=== PATIENT | male | born 1970 | race Caucasian/White ===

== ENCOUNTER 2023-01-06 15:21 | Emergency (ER) | payer OTHER, SELFPAY ==
[2023-01-06] VITALS (17 sets, daily range): BP systolic 144–170; BP diastolic 62–88; PULSE 61–79; RESP 16; TEMP 37.1; O2SAT 94–97; BMI 30.6
--- NOTE | 2023-01-06 15:55 | CRLHL7_ITS ---
For Patients: As a result of the Century Cures Act, medical imaging exams and procedure reports are released immediately into your electronic medical record. You may view this report before your referring provider. If you have questions, please contact your health care provider. INDICATION: Chest pain. TECHNIQUE: CT chest PE was acquired with 95 cc Isovue 370 IV contrast. COMPARISON: None. FINDINGS: Heart and vasculature: Contrast opacification of the pulmonary arterial tree is adequate. No sign of pulmonary embolism. Heart size is normal. Thoracic aorta and pulmonary artery are normal in caliber. Lungs and pleura: No suspicious nodules or infiltrates. Scattered atelectasis. No pleural effusions, pleural thickening, or pneumothorax. Lymph nodes/mediastinum: No mediastinal, hilar, or axillary adenopathy. Chest wall: No masses. Upper abdomen: No acute or significant findings. Bones: Unremarkable for age. IMPRESSION: No pulmonary embolism as questioned. No focal consolidation. Please note that all CT scans at this facility use dose modulation, iterative reconstruction, and/or weight-based dosing when appropriate to reduce radiation dose to as low as reasonably achievable. Dictated by Kade Reynoso MD @ 01/06/2023 5:24:59 PM (Electronically Signed)
[2023-01-06] MEDS: PANTOPRAZOLE SODIUM 40 MG INJ IVP (16:14)
[2023-01-06] MEDS: 0.9 % SODIUM CHLORIDE 1000 ml 1,000 ML IV (16:14)
--- NOTE | 2023-01-06 16:23 | ED.CHESTPAIN ---
HPI - Chest Pain General Date Seen: 01/06/23 Chief Complaint: Chest Pain Stated Complaint: Chest pain Time Seen by Provider: 01/06/23 15:30 Source: patient Mode of arrival: ambulatory Limitations: no limitations History of Present Illness HPI narrative: Patient is a very nice 52-year-old gentleman who I knew socially, presents here with chest pain for the last 4 days, he describes in his anterior chest, with no radiation, he came on after strenuous workout that he did. He noted the next day it was worse. It does not get worse with any twisting turning or doing any exercises, walking does not cause of worsening of this also. He denies any shortness of breath with this, any presyncopal symptoms, just this discomfort. Discomfort itself to come to [facility] 2 days ago, there are workup was negative with chest x-ray serial troponins D-dimer was all normal. He has no past history of any significant coronary artery disease, normal cholesterol is, nonsmoker his life, no history of hypertension. He has no other risk factors and no family history of coronary artery disease. I noted the notes from [facility] that he had a stress echo done in 2019 that was normal. And angiogram done in 2014 that was normal. He denies any leg swelling, nausea vomiting abdominal pain, he took some aspirin for a came in as he called a friend who is a physician who recommended that he take some aspirin come in. He tentatively has stress test for this week through his regular doctor Dr. Bronson Ponce in prior leg. complaint: chest pain Timing of current episode: constant Prior episodes: Yes Onset: during rest Pain location: substernal Pain radiation: none Quality: dull Relieving factors: nothing Treatment prior to arrival: none Risk Factors Coronary artery disease risk factors: none Thoracic aortic dissection risk factors: none Related Data Home Medications Medication Instructions Recorded Confirmed No Known Home Medications 01/06/23 01/06/23 Allergies Allergy/AdvReac Type Severity Reaction Status Date / Time No Known Drug Allergies Allergy Verified 01/06/23 16:34 Review of Systems Status of ROS Reports: 10 or more systems reviewed and unremarkable except as noted in History and below PFSH PFSH Social History Smoking Status: Never smoker Do you use any of these nicotine containing products: Other How often do you have a drink containing alcohol: 2-4 times a month How many standard drinks containing alcohol do you have on a typical day: 3 or 4 How often do you have six or more drinks on one occasion: Never AUDIT-C Alcohol total score: 3 Non-prescribed substance use: denies use Exam Narrative Exam Narrative: Patient is seen in room 6 he is in no apparent distress, sitting are normally, his pupils are equal round reactive to light there is no scleral icterus redness TMs are normal oropharynx is normal, there is no adenopathy anterior posterior chains, cranial nerves 3-12 are normal, his chest is good air entry bilaterally with no wheezing crackles noted easy respirations heart sounds no clicks murmurs or gallops his abdomen is soft there is no guarding no tenderness, he moves all extremities independently and well. No pitting edema, and normal pulses in his lower extremities. Const Vital Signs, click to edit/add: Vital Signs - 24 hr 01/06/23 15:25 01/06/23 15:41 01/06/23 15:42 Temperature 98.8 F Pulse Rate 70 70 Pulse Rate [Pulse Oximeter] 70 Respiratory Rate 16 Blood Pressure 151/88 H Blood Pressure [Right Upper Arm] 149/81 H Pulse Oximetry 95 96 94 Oxygen Delivery Method Room Air 01/06/23 15:45 01/06/23 16:00 01/06/23 16:02 Temperature Pulse Rate 73 73 Pulse Rate [Pulse Oximeter] Respiratory Rate Blood Pressure 170/62 H Blood Pressure [Right Upper Arm] Pulse Oximetry 96 95 Oxygen Delivery Method 01/06/23 16:15 01/06/23 16:30 01/06/23 16:33 Temperature Pulse Rate 61 65 Pulse Rate [Pulse Oximeter] Respiratory Rate Blood Pressure 154/87 H Blood Pressure [Right Upper Arm] Pulse Oximetry 95 95 Oxygen Delivery Method Documenting provider has reviewed patient's vital signs: yes Course Course Hospital Course: I discussed with the patient is CT is negative his enzymes are negative his EKG is reassuring, his pain is been ongoing now for a few days and not consistent at all with angina or cardio vascular causes. CT did not show any big evidence of up pulmonary embolism or aortic dissection. He did improve with the use of the Toradol, the Prilosec I think having him go home with these. He did inquire about a stress echo when I can set him up for that on Sunday, will call Sunday to ensure that he still wants to go through with that. We talked about other issues. With this follow-up with primary care possibly Cardiology. Vital Signs Vital signs: Initial Vital Signs Temperature 98.8 F 01/06/23 15:25 Temperature Source Temporal Artery Scan 01/06/23 15:25 Pulse Rate 70 01/06/23 15:25 Pulse Rhythm Regular 01/06/23 15:25 Pulse Strength 3+ Normal 01/06/23 15:25 Respiratory Rate 16 01/06/23 15:25 Blood Pressure 149/81 H 01/06/23 15:25 Blood Pressure Mean 103 01/06/23 15:25 Blood Pressure Position Sitting 01/06/23 15:25 Pulse Oximetry 95 01/06/23 15:25 Oxygen Delivery Method Room Air 01/06/23 15:25 Vital Signs Temperature 98.8 F 01/06/23 15:25 Pulse Rate 70 01/06/23 15:25 Respiratory Rate 16 01/06/23 15:25 Blood Pressure 149/81 H 01/06/23 15:25 Pulse Oximetry 95 01/06/23 15:25 Oxygen Delivery Method Room Air 01/06/23 15:25 Temperature 98.8 F 01/06/23 15:25 Pulse Rate 65 01/06/23 16:30 Respiratory Rate 16 01/06/23 15:25 Blood Pressure 154/87 H 01/06/23 16:33 Pulse Oximetry 95 01/06/23 16:30 Oxygen Delivery Method Room Air 01/06/23 15:25 MDM - Chest Pain MDM Narrative Medical decision making narrative: During the evaluation of this patient I considered multiple differential diagnosis is. The life-threatening differential diagnosis include coronary disease/[place], pulmonary embolism, pneumothorax, pneumonia, and aortic dissection. Other differential diagnosis included but were not limited to pericarditis, myocarditis, chest wall pain, GERD, esophageal rupture, rib fracture contusion, pleurisy, as well as other etiologies. Medical Records Data Attestation: I reviewed the patient's medical records. Medical records narrative: Reviewed medical records from [facility] from 2 days ago. Lab Data Attestation: I reviewed the patient's lab results. Labs: Lab Results 01/06/23 Range/Units 16:00 WBC 5.42 (4.50-11.00) K/uL RBC 4.78 (4.30-5.90) m/uL Hgb 14.6 (13.5-17.5) gm/dL Hct 42.5 (37.0-53.0) % MCV 89 (80-100) fL MCH 31 (26-34) pg MCHC 34 (32-36) gm/dL RDW Coeff of Mar 12.0 (11.5-15.5) % Plt Count 262 (140-440) K/uL Neut % (Auto) 58.4 (42.0-72.0) % Lymph % (Auto) 31.0 (20-44) % Bates % (Auto) 8.7 (0.0-11.0) % Eos % (Auto) 1.3 (0.0-7.0) % Baso % (Auto) 0.4 (0.0-3.0) % Neut # (Auto) 3.17 (1.7-7.0) K/uL Lymph # (Auto) 1.68 (0.90-2.90) K/uL Bates # (Auto) 0.50 (0.00-0.90) K/UL Eos # (Auto) 0.07 (0.00-0.50) K/uL Baso # (Auto) 0.02 (0.00-0.30) K/uL INR 0.93 (0.91-1.10) APTT 29 (23-33) Seconds D-Dimer Quant (PE/DVT) < 0.27 (0.00-0.50) ug/ml Sodium 138 (135-149) mmol/L Potassium 4.1 (3.6-5.1) mmol/L Chloride 105 (96-114) mmol/L Carbon Dioxide 27 (20-32) mmol/L BUN 14 (7-30) mg/dL Creatinine 0.9 (0.5-1.5) mg/dL Estimated Creat Clear 112.15 Estimated GFR 101 ml/min Glucose 97 (60-115) mg/dL Calcium 9.3 (8.4-10.6) mg/dL NT-Pro-B Natriuret Pep 80 pg/mL SARS-CoV-2 (PCR) Negative SARS-CoV-2 (Negative) Influenza Type A (PCR) Negative PCR FLU A (Negative) Influenza Type B (PCR) Negative PCR FLU B (Negative) RSV (PCR) Negative PCR RSV (Negative) POC Troponin I 0.00 L (0.01-0.04) ng/ml Imaging Data CT scan - chest: Attestation: I have reviewed the pertinent imaging results. My impression: Negative acute Radiologist's impression: Patient: DELIA HILTON Facility: [facility] Site . Site : 1970 Study: CT Chest Angio w/ 95cc Isovue-370 PE Protocol-01/06/2023 4:43:55 PM Ordering Physician: Renan Paulino Final Report: INDICATION: Chest pain. TECHNIQUE: CT chest PE was acquired with 95 cc Isovue 370 IV contrast. COMPARISON: None. FINDINGS: Heart and vasculature: Contrast opacification of the pulmonary arterial tree is adequate. No sign of pulmonary embolism. Heart size is normal. Thoracic aorta and pulmonary artery are normal in caliber. Lungs and pleura: No suspicious nodules or infiltrates. Scattered atelectasis. No pleural effusions, pleural thickening, or pneumothorax. Lymph nodes/mediastinum: No mediastinal, hilar, or axillary adenopathy. Chest wall: No masses. Upper abdomen: No acute or significant findings. Bones: Unremarkable for age. IMPRESSION: No pulmonary embolism as questioned. No focal consolidation. Please note that all CT scans at this facility use dose modulation, iterative reconstruction, and/or weight-based dosing when appropriate to reduce radiation dose to as low as reasonably achievable. Dictated by Kade Reynoso MD @ 01/06/2023 5:24:59 PM (Electronic Signature) ECG Data Attestation: I personally reviewed and interpreted this ECG as follows: ECG interpretation date: 01/06/23 ECG interpretation time: 16:30 Prior ECG tracings: not available for review Interpretation: EKG shows normal sinus rhythm, no acute ST wave changes, normal EKG Discharge Plan Discharge Clinical Impression: Chest pain Patient Disposition: Home, Self-Care Condition: Stable Instructions: Chest Pain (DC) Additional Instructions: Home rest use of Toradol p.r.n., I do suspect that this is more musculoskeletal in nature. Would recommend that he take Prilosec 20 mg a day for the next month, this really help me in my chest pain. I will call you on Sunday, we will try to get the stress echo scheduled for then. Return if worsening signs or symptoms Activity Level: No Restrictions Discharge Diet: Regular Prescriptions: No Action No Known Home Medications Follow Up/Referrals: Provider,Not a Local [Primary Care Provider] - Stand Alone Forms: [employer] Info Instructions
[2023-01-06 16:29] LABS: Basophils Absolute Auto 0.02 K/uL (0.00-0.30); Basophils Percent Auto 0.4 % (0.0-3.0); Eosinophils Absolute Auto 0.07 K/uL (0.00-0.50); Eosinophils Percent Auto 1.3 % (0.0-7.0); Hematocrit 42.5 % (37.0-53.0); Hemoglobin* 14.6 gm/dL (13.5-17.5); Immature Granulocytes Abs Auto 0.01 K/uL (0.00-0.30); Immature Granulocytes Pct Auto 0.2 %; Lymphocytes Absolute Auto 1.68 K/uL (0.90-2.90); Mean Corpuscular HGB Conc 34 gm/dL (32-36); Mean Corpuscular Hemoglobin 31 pg (26-34); Mean Corpuscular Volume 89 fL (80-100); Monocytes Percent Auto 8.7 % (0.0-11.0); Neutrophils Absolute Auto 3.17 K/uL (1.7-7.0); Neutrophils Percent Auto 58.4 % (42.0-72.0); Platelet Count* 262 K/uL (140-440); Red Blood Count 4.78 m/uL (4.30-5.90); White Blood Count* 5.42 K/uL (4.50-11.00)
[2023-01-06 16:33] LABS: Slide Review Reflex No
[2023-01-06 16:42] LABS: Chloride* 105 mmol/L (96-114); Potassium* 4.1 mmol/L (3.6-5.1); Sodium* 138 mmol/L (135-149)
[2023-01-06 16:44] LABS: Creatinine* 0.9 mg/dL (0.5-1.5); Est. Creatinine Clearance* 112.15; Estimated Glomerular Filt Rate 101 ml/min
[2023-01-06 16:45] LABS: Blood Urea Nitrogen* 14 mg/dL (7-30); Calcium* 9.3 mg/dL (8.4-10.6); Carbon Dioxide* 27 mmol/L (20-32); Glucose* 97 mg/dL (60-115); INR 0.93 (0.91-1.10)
[2023-01-06 16:46] LABS: Partial Thromboplastin Time* 29 Seconds (23-33)
[2023-01-06 16:48] LABS: D Dimer Quantitative* < 0.27 ug/ml (0.00-0.50)
[2023-01-06] MEDS: KETOROLAC 30 MG/ML inj IVP (16:49)
[2023-01-06 16:55] LABS: NT Pro B Type NatriureticPept* 80 pg/mL
[2023-01-06 17:06] LABS: PCR FLU A Negative PCR FLU A (Negative); PCR FLU B Negative PCR FLU B (Negative); PCR RSV Negative PCR RSV (Negative)
[2023-01-06 17:08] LABS: SARS PCR* Negative SARS-CoV-2 (Negative)
== END 2023-01-06 18:05 | disposition home or self-care (01) ==
PROVIDERS: Emergency Provider Family Medicine
DX: R07.9 Chest pain, unspecified (principal)
CPT/HCPCS: 36415; 71260; 80048; 83880; 84484; 85025; 85379; 85610; 85730; 87502; 87634; 87635; 93005; 96374; 96375; 99285; C9113; J1885; J7030; Q9967

== ENCOUNTER 2023-01-08 06:15 | Emergency (ER) | payer OTHER, SELFPAY ==
[2023-01-08 06:25] VITALS: BP 163/88; PULSE 54; RESP 16; TEMP 36.8; O2SAT 99; BMI 31.5
--- NOTE | 2023-01-08 06:48 | ED.CHESTPAIN ---
HPI - Chest Pain General Date Seen: 01/08/23 Chief Complaint: Chest Pain Stated Complaint: Chest pains back Time Seen by Provider: 01/08/23 06:17 Source: patient Mode of arrival: ambulatory Limitations: no limitations History of Present Illness HPI narrative: This nice 52-year-old gentleman presents here for evaluation of a feeling in his chest it is different from the previous feeling that I saw him here, and ruled him out for, it occurred when he was getting EKG, and said that is exact issue why I am here. He feels he is at nighttime when he is falling asleep almost that there is something in his chest that flips over or turns over. This pain which I saw him for has markedly improved with Toradol on the Prilosec, but he notes that he now has this new feeling. He never gets it when he is up walking around, he has also been watching his Apple watch and noted that his heart rate is in mid to upper 40s. No symptoms of per se chest pain, shortness of breath, fevers chills, or any issues with walking or exercising. Previous note is reviewed, there has been no other change, his cardiac risk factors are really not all. He did have a previous visit for chest pain, back in 2014 his troponin was elevated at that point, but he had a normal angiogram the next day and was sent home. Normal stress echo done in 1999- complaint: chest discomfort Onset: during rest Pain location: substernal Relieving factors: nothing Exacerbating factors: nothing Treatment prior to arrival: none Risk Factors Coronary artery disease risk factors: none Thoracic aortic dissection risk factors: none Related Data Home Medications Medication Instructions Recorded Confirmed No Known Home Medications 01/06/23 01/08/23 Allergies Allergy/AdvReac Type Severity Reaction Status Date / Time No Known Drug Allergies Allergy Verified 01/08/23 06:28 Review of Systems Status of ROS Reports: 10 or more systems reviewed and unremarkable except as noted in History and below PFSH PFSH Social History Smoking Status: Never smoker Do you use any of these nicotine containing products: Other How often do you have a drink containing alcohol: 2-4 times a month How many standard drinks containing alcohol do you have on a typical day: 3 or 4 How often do you have six or more drinks on one occasion: Never AUDIT-C Alcohol total score: 3 Non-prescribed substance use: denies use Exam Narrative Exam Narrative: Patient is seen in room 8 he is in no apparent distress we talked for a long time about PVCs, anxiety, and also the feeling that is occurring. Pupils are equal round reactive to light there is no scleral icterus redness TMs are normal oropharynx normal chest is clear bilaterally with no wheezing crackles noted heart sounds normal, no palpable tenderness noted, abdomen is soft and slightly obese there is no guarding no tenderness on palpation, no edema of the lower extremities. EKG shows mild sinus bradycardia at 49, with a PAC noted. Const Vital Signs, click to edit/add: Vital Signs - 24 hr 01/08/23 06:25 Temperature 98.2 F Pulse Rate [Right Pulse Oximeter] 54 L Respiratory Rate 16 Blood Pressure [Right Upper Arm] 163/88 H Pulse Oximetry 99 Oxygen Delivery Method Room Air Course Course Hospital Course: I discussed with the patient for quite some time we talked about the PACs, PVCs, stress, anxiety that he has gone through, his EKG otherwise is normal with no acute changes, I did put through a referral previously when I saw the patient for stress echo and he can continue with we can see we can get him in on Sunday for that. Continue take the medications but for today he said he would be comfortable does going home and getting some sleep, we can try some lorazepam at home, he has no personal history of anything with addictions in the past, is [employer] is entirely clean. If the point of care troponin is anything other than normal further workup will be done. Point of care troponin came back negative, I had a long discussion with the patient over this. We will give a small supply of Ativan that he used to sleep and decrease the stress, he my also consider stopping the nicotine lozenges, I also discussed with him the possibility of sleep apnea, he does not snore, and he has no tiredness during the day, or falling asleep. His blood pressure was elevated again I encouraged him to get this checked in the future, sure that it is in the good range. Vital Signs Vital signs: Initial Vital Signs Respiratory Effort Normal, Spontaneous, Non-Labored 01/08/23 06:17 Respiratory Depth Normal 01/08/23 06:17 Respiratory Pattern Normal 01/08/23 06:17 Vital Signs Temperature 98.2 F 01/08/23 06:25 Pulse Rate 54 L 01/08/23 06:25 Respiratory Rate 16 01/08/23 06:25 Blood Pressure 163/88 H 01/08/23 06:25 Pulse Oximetry 99 01/08/23 06:25 Oxygen Delivery Method Room Air 01/08/23 06:25 Temperature 98.2 F 01/08/23 06:25 Pulse Rate 54 L 01/08/23 06:25 Respiratory Rate 16 01/08/23 06:25 Blood Pressure 163/88 H 01/08/23 06:25 Pulse Oximetry 99 01/08/23 06:25 Oxygen Delivery Method Room Air 01/08/23 06:25 MDM - Chest Pain MDM Narrative Medical decision making narrative: During the evaluation of this patient I considered multiple differential diagnosis is. The life-threatening differential diagnosis include coronary disease/[place], pulmonary embolism, pneumothorax, pneumonia, and aortic dissection. Other differential diagnosis included but were not limited to pericarditis, myocarditis, chest wall pain, GERD, esophageal rupture, rib fracture contusion, pleurisy, as well as other etiologies. Medical Records Data Attestation: I reviewed the patient's medical records. Lab Data Attestation: I reviewed the patient's lab results. Labs: Lab Results 01/08/23 Range/Units 06:50 POC Troponin I 0.00 L (0.01-0.04) ng/ml Discharge Plan Discharge Clinical Impression: History of chest pain, Elevated blood pressure reading, PAC (premature atrial contraction) Patient Disposition: Home, Self-Care Condition: Stable Additional Instructions: Home, rest, reassurance given, medication dispense, to help with sleep, consideration of stopping the nicotine lozenges, or lease slowing down as they can cause elevated blood pressure. Prescriptions: No Action No Known Home Medications Follow Up/Referrals: Provider,Not a Local [Primary Care Provider] - Stand Alone Forms: [email or web address] Info Instructions
== END 2023-01-08 07:19 | disposition home or self-care (01) ==
LOC: ED 07:14
PROVIDERS: Emergency Provider Family Medicine
DX: R07.89 Other chest pain (principal); I49.1 Atrial premature depolarization; R03.0 Elevated blood-pressure reading, without diagnosis of hypertension
CPT/HCPCS: 84484; 93005; 99284

== ENCOUNTER 2023-01-09 15:43 | Outpatient (CLI) | payer OTHER, SELFPAY ==
[2023-01-09] MEDS: PERFLUTREN LIPID MICROSPHERES 2 ML VIAL IV (16:20)
[2023-01-09 17:01] VITALS: BP 123/75; PULSE 86
--- NOTE | 2023-01-09 17:18 | W.PM.STED ---
Stress Test Note Date Date Seen: 01/09/23 Date of test: 01/09/23 Providers Referring provider: Jefferson Urrutia Primary care provider: Not a Local Provider Stress test physician: Jefferson Urrutia Stress Test Note Stress test ordered: Stress Echo Indication for test: Chest pain Stress test medicine: Definity Results discussion: Patient is a very nice gentleman who presents for the above test after discussion the risks benefits side effects he would like to proceed pretest EKG shows normal sinus rhythm, no acute ST wave changes, blood pressure 145 and 90, with a ventricular rate of 50, following standard Russ protocol patient is exercised for a total time of 11 minutes, each evening metabolic equivalent of 12.1 Mets with a maximum heart rate of 157 which is 111% of the target. Maximum blood pressure 181 on , conditioning was felt to be excellent, during this test he had no chest pain no shortness of breath, review of the post test tracings show no evidence of significant ischemia, there is some slight upsloping notable primarily laterally Impression: Negative electrographic portion of stress echo Follow up suggested: Patient did well in exercised to a high functional capacity, there is no evidence of any acute changes, echo portion will be read by Cardiology, and I will get back to the patient if there is anything other than normal here. Patient left this testing facility in excellent condition.
== END 2023-01-09 15:44 | disposition home or self-care (01) ==
LOC: STRESS 15:43
PROVIDERS: Visit Provider Family Medicine
DX: R07.89 Other chest pain (principal)
CPT/HCPCS: 93016; 93325; 93351; Q9957

== ENCOUNTER 2024-08-27 13:51 | Emergency (ER) | payer OTHER, SELFPAY ==
[2024-08-27] VITALS (18 sets, daily range): BP systolic 136–148; BP diastolic 79–89; PULSE 76–94; RESP 16–18; TEMP 36.3–36.7; O2SAT 93–98; BMI 31.5
--- NOTE | 2024-08-27 14:15 | CRLHL7_ITS ---
For Patients: As a result of the Cures Act, medical imaging exams and procedure reports are released immediately into your electronic medical record. You may view this report before your referring provider. If you have questions, please contact your health care provider. INDICATION: Chest tightness. COMPARISON: None available. TECHNIQUE: 2 views (3 images). FINDINGS: Medical Devices: None. Lung Volumes: Adequate inspiration. No significant atelectasis. Lungs: Clear lungs. Pleura and Pleural spaces: No significant pleural effusion. No pneumothorax. Mediastinum: Normal cardiomediastinal silhouette. Bony Thorax and Soft Tissues: No significant incidental findings. IMPRESSION: Normal study. Dictated by Loc Stapleton MD @ 08/27/2024 2:32:45 PM (Electronically Signed)
--- NOTE | 2024-08-27 14:18 | ED.GENADULT ---
HPI - General Adult General Date Seen: 08/27/24 <Beverly Dove MD - Last Filed: 09/01/24 01:31> Chief complaint: Chest Pain <Beverly Dove MD - Last Filed: 09/01/24 01:31> Stated complaint: Chest pains, lightheaded <Beverly Dove MD - Last Filed: 09/01/24 01:31> Time Seen by Provider: 08/27/24 14:00 <Bevelry Dove MD - Last Filed: 09/01/24 01:31> History of Present Illness HPI narrative: Patient is a 53-year-old male here for evaluation of some tightness primarily in the right side of his chest with a little bit of radiation to the back. It was present at 5:00 a.m. this morning, did not wake him up. It has been constant since then. Does not vary with activity, position, eating or drinking. Not pleuritic. Does not feel short of breath. Denies any other respiratory symptoms such as fever or cough. No abdominal pain. No vomiting or diarrhea, no nausea. He has been physically active in the past 10 weeks he says, with vigorous exercise as recently as yesterday. He does exercise tolerance is unchanged and he did not have any chest discomfort with exercise. He notes that he has been to 2 difficulty funerals in the past few days, 1 of whom was someone his age who had a heart attack about a week ago and . In general, he does not feel that he is under significant stress, but acknowledges that other people feel that his life is stressful. He does not smoke, drinks occasionally. He was seen here a year and half ago with symptoms which he says were identical, evaluation including CT angiogram and treadmill stress test were unrevealing. He has had no recurrent symptoms until today. <Beverly Dove MD - Last Filed: 09/01/24 01:31> Related Data Home medications: Home Medications ?Medication ?Instructions ?Recorded ?Confirmed No Known Home Medications 01/06/23 08/27/24 <Beverly Dove MD - Last Filed: 09/01/24 01:31> Allergies/adverse reactions: Allergies Allergy/AdvReac Type Severity Reaction Status Date / Time No Known Drug Allergies Allergy Verified 08/27/24 13:59 <Beverly Dove MD - Last Filed: 09/01/24 01:31> Review of Systems Status of ROS: Reports: 10 or more systems reviewed and unremarkable except as noted in History and below <Beverly Dove MD - Last Filed: 09/01/24 01:31> [facility] Social History: Social History Smoking Status: Never smoker Do you use any of these nicotine containing products: Other How often do you have a drink containing alcohol: 2-4 times a month How many standard drinks containing alcohol do you have on a typical day: 3 or 4 How often do you have six or more drinks on one occasion: Never AUDIT-C Alcohol total score: 3 Non-prescribed substance use: denies use <Beverly Dove MD - Last Filed: 09/01/24 01:31> Exam Narrative: Exam Narrative: Vital signs reviewed In general, alert, nontoxic middle-aged male. Head: Normocephalic, atraumatic. Eyes: Sclera clear. Pupils equal and reactive. ENT: Mucous membranes moist. Neck: Supple without adenopathy. Heart: Regular rate and rhythm without murmur. Lungs: Clear. No increased work of breathing, crackles or wheezes. Abdomen: Soft, nontender to palpation. Negative Hartley sign. Extremities: Well perfused, pulses intact. No significant edema. Neurologic: Alert, conversant. Speech fluent, face symmetric. Moves all extremities equally. Skin: Warm, dry well perfused. Affect: Normal. <Beverly Dove MD - Last Filed: 09/01/24 01:31> Const: Vital Signs, click to edit/add: Vital Signs - 24 hr 08/27/24 13:54 08/27/24 14:14 08/27/24 14:18 Temperature 98.0 F Pulse Rate 76 Pulse Rate [Pulse Oximeter] 82 Respiratory Rate 16 Blood Pressure Blood Pressure [Ri ght Upper Arm] 142/89 H Pulse Oximetry 96 98 96 Oxygen Delivery Ms thod Room Air 08/27/24 14:30 08/27/24 14:31 08/27/24 14:36 Temperature Pulse Rate 76 77 81 Pulse Rate [Pulse Oximeter] Respiratory Rate Blood Pressure 147/79 H 140/80 H Blood Pressure [Ri ght Upper Arm] Pulse Oximetry 94 95 95 Oxygen Delivery Me thod 08/27/24 14:41 08/27/24 14:45 08/27/24 14:51 Temperature Pulse Rate 90 93 94 Pulse Rate [Pulse Oximeter] Respiratory Rate Blood Pressure 138/79 136/86 Blood Pressure [Ri ght Upper Arm] Pulse Oximetry 96 93 94 Oxygen Delivery Me thod 08/27/24 15:08 08/27/24 15:09 08/27/24 15:15 Temperature Pulse Rate 76 83 82 Pulse Rate [Pulse Oximeter] Respiratory Rate Blood Pressure 143/84 H Blood Pressure [Ri ght Upper Arm] Pulse Oximetry 95 97 95 Oxygen Delivery Me thod 08/27/24 15:30 08/27/24 15:31 08/27/24 15:32 Temperature Pulse Rate 83 84 80 Pulse Rate [Pulse Oximeter] Respiratory Rate Blood Pressure 148/88 H Blood Pressure [Ri ght Upper Arm] Pulse Oximetry 96 96 97 Oxygen Delivery Me thod 08/27/24 15:45 08/27/24 16:00 08/27/24 16:02 Temperature 97.4 F L Pulse Rate 77 77 79 Pulse Rate [Pulse Oximeter] Respiratory Rate 18 Blood Pressure 143/82 H Blood Pressure [Ri ght Upper Arm] Pulse Oximetry 98 97 97 Oxygen Delivery Me thod <Beverly Dove MD - Last Filed: 09/01/24 01:31> Vital Signs, click to edit/add: Vital Signs - 24 hr 08/27/24 13:54 08/27/24 14:14 08/27/24 14:18 Temperature 98.0 F Pulse Rate 76 Pulse Rate [Pulse Oximeter] 82 Respiratory Rate 16 Blood Pressure Blood Pressure [Ri ght Upper Arm] 142/89 H Pulse Oximetry 96 98 96 Oxygen Delivery Me thod Room Air 08/27/24 14:30 08/27/24 14:31 08/27/24 14:36 Temperature Pulse Rate 76 77 81 Pulse Rate [Pulse Oximeter] Respiratory Rate Blood Pressure 147/79 H 140/80 H Blood Pressure [Ri ght Upper Arm] Pulse Oximetry 94 95 95 Oxygen Delivery Me thod 08/27/24 14:41 08/27/24 14:45 08/27/24 14:51 Temperature Pulse Rate 90 93 94 Pulse Rate [Pulse Oximeter] Respiratory Rate Blood Pressure 138/79 136/86 Blood Pressure [Ri ght Upper Arm] Pulse Oximetry 96 93 94 Oxygen Delivery Me thod 08/27/24 15:08 08/27/24 15:09 08/27/24 15:15 Temperature Pulse Rate 76 83 82 Pulse Rate [Pulse Oximeter] Respiratory Rate Blood Pressure 143/84 H Blood Pressure [Ri ght Upper Arm] Pulse Oximetry 95 97 95 Oxygen Delivery Me thod 08/27/24 15:30 08/27/24 15:31 08/27/24 15:32 Temperature Pulse Rate 83 84 80 Pulse Rate [Pulse Oximeter] Respiratory Rate Blood Pressure 148/88 H Blood Pressure [Ri ght Upper Arm] Pulse Oximetry 96 96 97 Oxygen Delivery Me thod 08/27/24 15:45 08/27/24 16:00 08/27/24 16:02 Temperature 97.4 F L Pulse Rate 77 77 79 Pulse Rate [Pulse Oximeter] Respiratory Rate 18 Blood Pressure 143/82 H Blood Pressure [Ri ght Upper Arm] Pulse Oximetry 98 97 97 Oxygen Delivery Me thod <Ralph Olivas MD - Last Filed: 08/27/24 16:43> Documenting provider has reviewed patient's vital signs: yes <Beverly Dove MD - Last Filed: 09/01/24 01:31> Course Course ED Course: EKG done on arrival shows a sinus rhythm, ventricular rate of 84. No acute ST segment changes, normal T-waves. Diagnostic considerations would include acute coronary syndrome, though negative evaluation 18 months ago and lack of any exertional symptoms I do think reduces the likelihood somewhat. Nonetheless, will order serial troponins, metabolic panel, CBC, D-dimer, will do a chest x-ray to rule out possible pneumothorax, pleural effusion, infiltrate etcetera. He does not have abdominal pain or tenderness, would doubt that this is biliary but will order LFTs and lipase. Consider GI source as well such as gastroesophageal reflux or esophagitis. Initial results discussed with patient, 2nd troponin is pending and signed out to oncoming provider. Assuming that is negative, would recommend close outpatient follow-up, consideration of repeat stress testing, return for worsening. It sounds as if he started on a PPI last time he had the symptoms and did improve, but then discontinued after period of time. Would be reasonable to try that again to see if it affects his symptoms. <Beverly Dove MD - Last Filed: 09/01/24 01:31> Reevaluation(s) Time of Reevaluation #1: 16:41 <Ralph Olivas MD - Last Filed: 08/27/24 16:43> Reevaluation #1: Patient accepted in sign-out from prior provider. Patient presents with right-sided chest pain that has been constant since about 5:00 a.m. today, no relieving or exacerbating factors. No relief with nitroglycerin. On exam here, patient is vital is stable with reassuring EKG. Labs independently interpreted by me with normal CBC, normal basic panel, normal CRP, negative BNP, negative troponin x2, negative D-dimer. Patient stable for discharge with outpatient follow-up. <Ralph Olivas MD - Last Filed: 08/27/24 16:43> Vital Signs Vital signs: Initial Vital Signs Temperature 98.0 F 08/27/24 13:54 Temperature Source Temporal Artery Scan 08/27/24 13:54 Pulse Rate 82 08/27/24 13:54 Respiratory Rate 16 08/27/24 13:54 Blood Pressure 142/89 H 08/27/24 13:54 Blood Pressure Mean 106 H 08/27/24 13:54 Blood Pressure Position Sitting 08/27/24 13:54 Pulse Oximetry 96 08/27/24 13:54 Oxygen Delivery Method Room Air 08/27/24 13:54 Vital Signs Temperature 98.0 F 08/27/24 13:54 Pulse Rate 82 08/27/24 13:54 Respiratory Rate 16 08/27/24 13:54 Blood Pressure 142/89 H 08/27/24 13:54 Pulse Oximetry 96 08/27/24 13:54 Oxygen Delivery Method Room Air 08/27/24 13:54 Temperature 97.4 F L 08/27/24 16:02 Pulse Rate 79 08/27/24 16:02 Respiratory Rate 18 08/27/24 16:02 Blood Pressure 143/82 H 08/27/24 16:02 Pulse Oximetry 97 08/27/24 16:02 Oxygen Delivery Method Room Air 08/27/24 13:54 <Beverly Dove MD - Last Filed: 09/01/24 01:31> Initial Vital Signs Temperature 98.0 F 08/27/24 13:54 Temperature Source Temporal Artery Scan 08/27/24 13:54 Pulse Rate 82 08/27/24 13:54 Respiratory Rate 16 08/27/24 13:54 Blood Pressure 142/89 H 08/27/24 13:54 Blood Pressure Mean 106 H 08/27/24 13:54 Blood Pressure Position Sitting 08/27/24 13:54 Pulse Oximetry 96 08/27/24 13:54 Oxygen Delivery Method Room Air 08/27/24 13:54 Vital Signs Temperature 98.0 F 08/27/24 13:54 Pulse Rate 82 08/27/24 13:54 Respiratory Rate 16 08/27/24 13:54 Blood Pressure 142/89 H 08/27/24 13:54 Pulse Oximetry 96 08/27/24 13:54 Oxygen Delivery Method Room Air 08/27/24 13:54 Temperature 97.4 F L 08/27/24 16:02 Pulse Rate 79 08/27/24 16:02 Respiratory Rate 18 08/27/24 16:02 Blood Pressure 143/82 H 08/27/24 16:02 Pulse Oximetry 97 08/27/24 16:02 Oxygen Delivery Method Room Air 08/27/24 13:54 <Ralph Olivas MD - Last Filed: 08/27/24 16:43> Medications Administered Medications: Discontinued Medications Generic Name Dose Route Start Last Admin Trade Name Freq PRN Reason Stop Dose Admin Aspirin 324 mg 08/27/24 14:14 08/27/24 14:34 Aspirin 81 Mg Tab.Chew PO 08/27/24 14:15 324 mg ONCE ONE Administration Nitroglycerin 0.4 mg 08/27/24 14:14 08/27/24 14:36 Nitroglycerin 0.4 Mg Tab.Subl SUBLINGUAL 08/27/24 14:15 0.4 mg ONCE ONE Administration <Beverly Dove MD - Last Filed: 09/01/24 01:31> Discontinued Medications Generic Name Dose Route Start Last Admin Trade Name Freq PRN Reason Stop Dose Admin Aspirin 324 mg 08/27/24 14:14 08/27/24 14:34 Aspirin 81 Mg Tab.Chew PO 08/27/24 14:15 324 mg ONCE ONE Administration Nitroglycerin 0.4 mg 08/27/24 14:14 08/27/24 14:36 Nitroglycerin 0.4 Mg Tab.Subl SUBLINGUAL 08/27/24 14:15 0.4 mg ONCE ONE Administration <Ralph Olivas MD - Last Filed: 08/27/24 16:43> Medical Decision Making Lab Data Labs: Lab Results 08/27/24 08/27/24 Range/Units 14:22 16:30 WBC 5.45 (4.50-11.00) K/uL RBC 5.25 (4.30-5.90) m/uL Hgb 16.1 (13.5-17.5) gm/dL Hct 47.3 (37.0-53.0) % MCV 90 (80-100) fL MCH 31 (26-34) pg MCHC 34 (32-36) gm/dL RDW Coeff of Mar 11.8 (11.5-15.5) % Plt Count 242 (140-440) K/uL Neut % (Auto) 67.0 (42.0-72.0) % Lymph % (Auto) 23.7 (20-44) % [place] % (Auto) 8.1 (0.0-11.0) % Eos % (Auto) 0.6 (0.0-7.0) % Baso % (Auto) 0.4 (0.0-3.0) % Neut # (Auto) 3.66 (1.7-7.0) K/uL Lymph # (Auto) 1.29 (0.90-2.90) K/uL [place] # (Auto) 0.40 (0.00-0.90) K/UL Eos # (Auto) 0.03 (0.00-0.50) K/uL Baso # (Auto) 0.02 (0.00-0.30) K/uL Abs Immat Gran (auto) 0.01 (0.00-0.30) K/uL Imm/Tot Granulo (auto) 0.2 % D-Dimer Quant (PE/DVT) 0.38 (0.00-0.50) ug/ml Sodium 135 (135-149) mmol/L Potassium 4.3 (3.6-5.1) mmol/L Chloride 102 (96-114) mmol/L Carbon Dioxide 24 (20-32) mmol/L Anion Gap 9 (7-15) mEq/L BUN 11 (7-30) mg/dL Creatinine 0.9 (0.5-1.5) mg/dL Estimated Creat Clear 107.82 Estimated GFR 101 ml/min Glucose 115 (60-115) mg/dL Calcium 9.3 (8.4-10.6) mg/dL Total Bilirubin 1.1 (0.1-1.5) mg/dL Direct Bilirubin 0.2 (0.0-0.5) mg/dL AST 27 (12-35) U/L ALT 24 (4-50) U/L Alkaline Phosphatase 57 (40-150) U/L C-Reactive Protein < 0.5 L (0.5-1.0) mg/dL NT-Pro-B Natriuret Pep < 20 pg/mL Total Protein 7.4 (6.0-8.3) g/dL Albumin 4.6 (3.3-5.0) g/dL Lipase 79 (23-300) U/L POC Troponin I 0.00 L 0.00 L (0.01-0.04) ng/ml <Beverly Dove MD - Last Filed: 09/01/24 01:31> Lab Results 08/27/24 08/27/24 Range/Units 14:22 16:30 WBC 5.45 (4.50-11.00) K/uL RBC 5.25 (4.30-5.90) m/uL Hgb 16.1 (13.5-17.5) gm/dL Hct 47.3 (37.0-53.0) % MCV 90 (80-100) fL MCH 31 (26-34) pg MCHC 34 (32-36) gm/dL RDW Coeff of Mar 11.8 (11.5-15.5) % Plt Count 242 (140-440) K/uL Neut % (Auto) 67.0 (42.0-72.0) % Lymph % (Auto) 23.7 (20-44) % [place] % (Auto) 8.1 (0.0-11.0) % Eos % (Auto) 0.6 (0.0-7.0) % Baso % (Auto) 0.4 (0.0-3.0) % Neut # (Auto) 3.66 (1.7-7.0) K/uL Lymph # (Auto) 1.29 (0.90-2.90) K/uL [place] # (Auto) 0.40 (0.00-0.90) K/UL Eos # (Auto) 0.03 (0.00-0.50) K/uL Baso # (Auto) 0.02 (0.00-0.30) K/uL Abs Immat Gran (auto) 0.01 (0.00-0.30) K/uL Imm/Tot Granulo (auto) 0.2 % D-Dimer Quant (PE/DVT) 0.38 (0.00-0.50) ug/ml Sodium 135 (135-149) mmol/L Potassium 4.3 (3.6-5.1) mmol/L Chloride 102 (96-114) mmol/L Carbon Dioxide 24 (20-32) mmol/L Anion Gap 9 (7-15) mEq/L BUN 11 (7-30) mg/dL Creatinine 0.9 (0.5-1.5) mg/dL Estimated Creat Clear 107.82 Estimated GFR 101 ml/min Glucose 115 (60-115) mg/dL Calcium 9.3 (8.4-10.6) mg/dL Total Bilirubin 1.1 (0.1-1.5) mg/dL Direct Bilirubin 0.2 (0.0-0.5) mg/dL AST 27 (12-35) U/L ALT 24 (4-50) U/L Alkaline Phosphatase 57 (40-150) U/L C-Reactive Protein < 0.5 L (0.5-1.0) mg/dL NT-Pro-B Natriuret Pep < 20 pg/mL Total Protein 7.4 (6.0-8.3) g/dL Albumin 4.6 (3.3-5.0) g/dL Lipase 79 (23-300) U/L POC Troponin I 0.00 L 0.00 L (0.01-0.04) ng/ml <Ralph Olivas MD - Last Filed: 08/27/24 16:43> Discharge Plan Discharge Clinical Impression: Chest pain <Beverly Dove MD - Last Filed: 09/01/24 01:31> Patient Disposition: Home, Self-Care <Beverly Dove MD - Last Filed: 09/01/24 01:31> Condition: Stable <Beverly Dove MD - Last Filed: 09/01/24 01:31> Instructions: Chest Pain (DC) <Beverly Dove MD - Last Filed: 09/01/24 01:31> Additional Instructions: Your test today are reassuring, chest x-ray is normal, and troponin is normal x2. I would suggest that you follow-up with your primary doctor to discuss this further, repeat stress testing may be reasonable. I do not have any reason however to suspect at this time that your symptoms are heart related. Nonetheless, if at any time you have symptoms which are severe or worsening, return to the emergency department. <Beverly Dove MD - Last Filed: 09/01/24 01:31> Prescriptions: No Action No Known Home Medications <Beverly Dove MD - Last Filed: 09/01/24 01:31> Follow Up/Referrals: Provider,Not a Local [Primary Care Provider] - <Beverly Dove MD - Last Filed: 09/01/24 01:31> Stand Alone Forms: [employer] Info Instructions <Beverly Dove MD - Last Filed: 09/01/24 01:31>
[2024-08-27 14:31] LABS: Basophils Absolute Auto 0.02 K/uL (0.00-0.30); Basophils Percent Auto 0.4 % (0.0-3.0); Eosinophils Absolute Auto 0.03 K/uL (0.00-0.50); Eosinophils Percent Auto 0.6 % (0.0-7.0); Hematocrit 47.3 % (37.0-53.0); Hemoglobin* 16.1 gm/dL (13.5-17.5); Immature Granulocytes Abs Auto 0.01 K/uL (0.00-0.30); Immature Granulocytes Pct Auto 0.2 %; Lymphocytes Absolute Auto 1.29 K/uL (0.90-2.90); Lymphocytes Percent Auto 23.7 % (20-44); Mean Corpuscular HGB Conc 34 gm/dL (32-36); Mean Corpuscular Hemoglobin 31 pg (26-34); Mean Corpuscular Volume 90 fL (80-100); Monocytes Percent Auto 8.1 % (0.0-11.0); Neutrophils Absolute Auto 3.66 K/uL (1.7-7.0); Platelet Count* 242 K/uL (140-440); RDW Coefficient of Variation % 11.8 % (11.5-15.5); Red Blood Count 5.25 m/uL (4.30-5.90); White Blood Count* 5.45 K/uL (4.50-11.00)
[2024-08-27] MEDS: ASPIRIN 81 MG TAB.CHEW 324 MG PO (14:34)
[2024-08-27] MEDS: NITROGLYCERIN 0.4 MG TAB.SUBL SUBLINGUAL (14:36)
[2024-08-27 14:44] LABS: Albumin* 4.6 g/dL (3.3-5.0); Chloride* 102 mmol/L (96-114); Potassium* 4.3 mmol/L (3.6-5.1); Sodium* 135 mmol/L (135-149)
[2024-08-27 14:46] LABS: Creatinine* 0.9 mg/dL (0.5-1.5); Est. Creatinine Clearance* 107.82; Estimated Glomerular Filt Rate 101 ml/min
[2024-08-27 14:47] LABS: Alkaline Phosphatase* 57 U/L (40-150); Anion Gap 9 mEq/L (7-15); Aspartate Amino Transferase* 27 U/L (12-35); Bilirubin Direct* 0.2 mg/dL (0.0-0.5); Bilirubin Total* 1.1 mg/dL (0.1-1.5); Blood Urea Nitrogen* 11 mg/dL (7-30); Carbon Dioxide* 24 mmol/L (20-32); Glucose* 115 mg/dL (60-115); Lipase* 79 U/L (23-300); Total Protein* 7.4 g/dL (6.0-8.3)
[2024-08-27 14:48] LABS: Alanine Aminotransferase* 24 U/L (4-50); Calcium* 9.3 mg/dL (8.4-10.6); D Dimer Quantitative* 0.38 ug/ml (0.00-0.50)
[2024-08-27 14:54] LABS: C Reactive Protein* < 0.5 mg/dL (0.5-1.0)
[2024-08-27 15:01] LABS: NT Pro B Type NatriureticPept* < 20 pg/mL
[2024-08-27 15:06] LABS: Slide Review Reflex No
== END 2024-08-27 16:59 | disposition home or self-care (01) ==
PROVIDERS: Emergency Medicine; Emergency Provider Family Medicine
DX: R07.9 Chest pain, unspecified (principal)
CPT/HCPCS: 36415; 71046; 80048; 80076; 83690; 83880; 84484; 85025; 85379; 86140; 93005; 94761; 99284; 99285; A9270

== ENCOUNTER 2024-12-17 09:41 | Emergency (ER) | payer OTHER, SELFPAY ==
[2024-12-17] VITALS (11 sets, daily range): BP systolic 125–145; BP diastolic 69–84; PULSE 49–61; RESP 15–20; TEMP 36.2; O2SAT 96–98; BMI 29.4
--- OUTSIDE RECORDS SUMMARY | 2024-12-17 09:43 | XMS_ITS | Encounter Summary ---
Author Organization [facility] Address [address] [place] [address] Care Team Providers Care Chief Radiology Name Role Phone Unavailable Primary Care Provider Unavailabl e Reason for Visit * Reason Comments Pre-visit Planning Entered automaticall y based on patient selection in [place]. Encounter Details Date Type Department Care Team (Late st Contact Info) Description 11/20/2024 11:30 AM WEB [employer]ER E-Visit [facility] [address] [place] [address] Tyrone Elliott PA-C [id number] [place] [address] Dx: Hyperlipidemia with target LDL less than 130 (HRC) (Primary Dx) Social History Tobacco Use Types Packs/Day Years Used Date Smoking Tobacco: Never Smokeless Tobacco: Never Comments:occasional chewing tab. Alcohol Use Standard Drinks/Week Comments Yes 4 (1 standard drink = 0.6 oz pur e alcohol) PHQ-2 Answer Date Recorded PHQ-2 Score 0 07/22/2024 Sex and Gender Information Value Date Recorded Sex Assigned at Not on file Legal Sex Male 9:15 PM CDT Gender Identity Not on file Sexual Orientation Not on file documented as of this encounter Plan of Treatment Not on file documented as of this encounter Results * Hgb A1C (12/08/2024 11:56 AM WE[employer] TENDER) Hemoglobin A1C (Rapid) 5.3 <=5.6 % 12/08/2024 12:14 PM [facility] Estimated Average Glucose (Calc) 105 < 117 mg/dL 12/08/2024 12:14 PM [facility] Comment:Estimated average gl ucose (eAG) converts A1c into glucose units (mg/dL) and estimates average glucose over the past approximately 3 months. The eAG reference interval (<117 mg/dL) corresponds to an A1c of <5.7%. Blood Venipuncture / Unknown 12/08/2024 11:56 AM [employer]ER 12/08/2024 11:56 AM [facility] - 12/08/2024 12:14 PM [employer] TENDER The test method used for this Hemoglobin A1c result can experience interference from elevated hemoglobin and other hemoglobin variants. In patients with results that do not correlate clinically, contact the lab for further direction. Tyrone CARROLL LAB_1 Final Result Performing Organization Address [facility] Co de Phone Number [facility] [address] [place] [address]R[place] * Prostatic Specific Antigen (Screen) (12/08/2024 11:56 AM WEB [employer] RO[employer] TENDER) Prostatic Specific Antigen 0.9 0.0 - 4.0 ng/mL 12/08/2024 6:44 PM [facility] Blood Venipuncture / Unknown 12/08/2024 11:56 AM WE[employer] TENDER 12/08/2024 11:56 AM [facility] - 12/08/2024 6:44 PM WE[employer] RO[employer] TENDER The Fish PSA Chemiluminescent immunoassay is used. Results obtained with different test methods or kits cannot be used interchangeably. Tyrone Elliott PA-C LAB_1 Final Result Performing Organization Address City/[facility]/ZIP Co de Phone Number [facility] [address] [place], [place] [id number] [place] [address] * (ABNORMAL) Lipid Panel and Direct LDL(If Needed) (12/08/2024 11:56 AM WEB PRESS RO[employer] TENDER) Cholesterol 160 0 - 199 mg/dL 12/08/2024 2:53 PM [employer] T[employer]ER [facility] Triglyceride 52 <=149 mg/dL 12/08/2024 2:53 PM [facility] HDL Cholesterol 34(L) >=40 mg/dL 2:53 PM [facility] LDL, Calculated 116 <130 mg/dL 2:53 PM [facility] Non HDL Chol, Calculated 126 <=159 mg/dL 12/08/2024 2:53 PM [facility] Cholesterol/HDL Ratio 4.7 <=5.0 12/08/2024 2:53 PM [facility] Hours Fasting 16.0 8 - 12 Hours 12/08/2024 2:53 PM [facility] Blood Venipuncture / Unknown 12/08/2024 11:56 AM [employer] TENDER 12/08/2024 11:56 AM [employer] T[employer]ER Tyrone Elliott PA-C LAB_1 Final Result Performing Organization Address [facility] Phone Number [address] * ALT (SGPT) (12/08/2024 11:56 AM WEB [employer] RO[employer] TENDER) ALT (SGPT) 16 0 - 55 U/L 12/08/2024 2:53 PM [facility] Blood Venipuncture / Unknown 12/08/2024 11:56 AM WE[employer] RO[employer] TENDER 12/08/2024 11:56 AM WE[employer] T[employer]ER Tyrone Elliott PA-C LAB_1 Final Result Performing Organization Address City/[facility]/ZIP Co de Phone Number [address] * AST (12/08/2024 11:56 AM WEB PRESS RO[employer] TENDER) AST (SGOT) 19 10 - 40 U/L 12/08/2024 2:53 PM [facility] Blood Venipuncture / Unknown 12/08/2024 11:56 AM WE[employer] RO[employer] TENDER 12/08/2024 11:56 AM WE[employer] RO[employer] TENDER Tyrone Elliott PA-C LAB_1 Final Result [facility] [address] [place] [address] * (ABNORMAL) Ferritin (12/08/2024 11:56 AM WEB PRESS RO[employer] TENDER) Ferritin 313(H) 22 - 275 ng/mL 12/08/2024 7:20 PM [employer]ER [facility] Blood Venipuncture / Unknown 12/08/2024 11:56 AM WEB [employer] ROLL TENDER 12/08/2024 11:56 AM WE[employer] RO[employer] TENDER Tyrone Elliott PA-C LAB_1 Final Result Performing Organization Address [facility] Co de Phone Number [facility] [address] * Basic Metabolic Panel (12/08/2024 11:56 AM WEB PRESS ROLL TENDER) Pathologist [facility] Sodium 137 136 - 145 mmol/L 12/08/2024 2:53 PM [facility] Potassium 4.6 3.5 - 5.1 mmol/L 12/08/2024 2:53 PM [facility] Chloride 107 98 - 109 mmol/L 12/08/2024 2:53 PM [facility] CO2 25 20 - 29 mmol/L 12/08/2024 2:53 PM [facility] Anion Gap 5 6 - 16 mmol/L 12/08/2024 2:53 PM [facility] Calcium 8.8 8.4 - 10.4 mg/dL 12/08/2024 2:53 PM [facility] BUN 16 7 - 26 mg/dL 12/08/2024 2:53 PM [facility] Creatinine 1.12 0.73 - 1.18 mg/dL 12/08/2024 2:53 PM [facility] Glucose 99 70 - 100 mg/dL 12/08/2024 2:53 PM [facility] Comment:The given reference range is for the fasting state. Non-fasting reference range for glucose is 70 - 180 mg/dL. GFR, Estimated >60 >60 mL/min/1.7 3m2 12/08/2024 2:53 PM [facility] Hours Fasting 16.0 8 - 12 Hours 12/08/2024 2:53 PM [facility] Blood Venipuncture / Unknown 12/08/2024 11:56 AM WEB PRESS ROLL TENDER 12/08/2024 11:56 AM WEB [employer] ROLL TENDER us Tyrone Elliott PA-C LAB_1 Final Result Performing Organization Address City/State/[facility] Co de Phone Number [facility] [address] [place] [address] documented in this encounter Visit Diagnoses Diagnosis Hyperlipidemia with target LDL less than 130 (HRC)- Primary Other and unspecified hyperlipidemia Elevated ferritin Other abnormal blood chemistry Screening for diabetes mellitus Screening for prostate cancer Special screening for malignant neoplasm of prostate documented in this encounter
--- OUTSIDE RECORDS SUMMARY | 2024-12-17 09:43 | XMS_ITS | Clinical Summary ---
Author Organization [facility] Address [address] [place] [address] Care Team Providers Care Private Chef Name Role Phone Pcp, No Primary Care Provider Unavailabl e Allergies No known active allergies Social History Tobacco Use Types Packs/Day Years Used Date Smoking Tobacco: Never Assessed Social Connections Answer Date Recorded Frequency of Communication with Friends and Fami ly Not on file 12/19/2021 Sex and Gender Information Value Date Recorded Sex Assigned at Not on file Legal Sex Male 10:00 AM [employer] Gender Identity Not on file Sexual Orientation Not on file Last Filed Vital Signs Vital Sign Reading Time Taken Comments Blood Pressure - - Pulse 64 12/19/2021 10:12 AM [employer] Temperature 36.4 C (97.5 F) 12/19/2021 10:12 AM [employer] Respiratory Rate - - Oxygen Saturation 95% 12/19/2021 10:12 AM [employer] Inhaled Oxygen Concentration - - Weight - - Height - - Body Mass Index - - Plan of Treatment Health Maintenance Due Date Last Done Comments Tdap 1979 Depression screening for age 12+ 1980 HIV for age 15-65 1983 BMI (ht and wt on same day) for age 18+ 1986 Hepatitis C screening for age 18-79 1986 Tetanus booster 1988 Colonoscopy through age 75 2013 Lipids for age 45-75 2013 Pneumococcal series for age 50+ (1 of 1 - PCV) 2018 Zoster (shingles) series for age 50+ (1 of 2) 2018 COVID-19 vaccine series ( season) 2024 09/13/2021, 06/29/2021 Influenza for age 50-64 06/15/2024 Insurance [employer] [place] [id number] [place]ES [id number] Care Teams Private Chef Relationship Specialty Start Date End Date Pcp, No . PCP - General 01/09/23
--- OUTSIDE RECORDS SUMMARY | 2024-12-17 09:43 | XMS_ITS | Encounter Summary ---
Author Organization [employer] Address [address] [place] [address] Care Team Providers Care Contract Clerk Name Role Phone Unavailable Primary Care Provider Unavailabl e Encounter Details Date Type Department Care Team (Late st Contact Info) Description 12/09/2024 Results Follow-Up [facility] [address] [place], [place] [id number] Tyrone Elliott PA-C [address] [place] [phone] Social History Tobacco Use Types Packs/Day Years Used Date Smoking Tobacco: Never Smokeless Tobacco: Never Comments:occasional chewing tab. Alcohol Use Standard Drinks/Week Comments Yes 4 (1 standard drink = 0.6 oz pur e alcohol) PHQ-2 Answer Date Recorded PHQ-2 Score 0 07/22/2024 Hunger Vital Sign Answer Date Recorded Within the past 12 months, y ou worried that your food would run out before you got the money to buy more. Never true 12/08/19 25 Within the past 12 months, t he food you bought just didn't last and you didn't have money to get more. Never true 12/08/2024 PRAPARE - Transportation Answer Date Re corded In the past 12 months, has l ack of transportation kept you from medical appointments or from getting medications? No 11/16 In the past 12 months, has l ack of transportation kept you from meetings, work, or from getting things needed for daily living? No 12/08/2024 Housing Stability Vital Sign Answer Chapo e Recorded In the last 12 months, was t here a time when you were not able to pay the mortgage or rent on time? No 12/08/2024 In the past 12 months, how m any times have you moved where you were living? 0 12/08/2024 At any time in the past 12 m [facility], were you homeless or living in a mcc (including now)? No 12/08/2024 Sex and Gender Information Value Date Recorded Sex Assigned at Not on file Legal Sex Male 9:15 PM CDT Gender Identity Not on file Sexual Orientation Not on file documented as of this encounter Plan of Treatment Not on file documented as of this encounter Visit Diagnoses Not on filedocumented in this encounter
--- OUTSIDE RECORDS SUMMARY | 2024-12-17 09:43 | XMS_ITS | Encounter Summary ---
Author Organization [employer] Address [address] [place] [address] Care Team Providers Care Contract Engineer Name Role Phone Unavailable Primary Care Provider Unavailabl e Reason for Visit * Reason Comments Pre-visit Planning Entered automaticall y based on patient selection in [email or web address]. Encounter Details Date Type Department Care Team (Late st Contact Info) Description 12/11/2024 11:00 AM CRIMINAL PSYCHOLOGIST E-Visit [facility] [address] [place] [address] Tyrone Elliott, LIZZIE [address] [place] [address] Chief Comp: Pre-visit Planning Social History Tobacco Use Types Packs/Day Years [...] any time in the past 12 m [facility], were you homeless or living in a half-way (including now)? No 12/08/2024 Sex and Gender Information Value Date Recorded Sex Assigned at Not on file Legal Sex Male 9:15 PM CDT Gender Identity Not on file Sexual Orientation Not on file documented as of this encounter Nursing Notes * Conrad Harper - 12/11/2024 3:30 PM CST Care team please advise if a Same Day Appt is ok to use. INAL PSYCHOLOGIST documented in this encounter Plan of Treatment Not on file documented as of this encounter Visit Diagnoses Not on filedocumented in this encounter
--- OUTSIDE RECORDS SUMMARY | 2024-12-17 09:43 | XMS_ITS | Encounter Summary ---
Author Organization [employer] Address [address] [place] [address] Care Team Providers Care System Manager Name Role Phone Unavailable Primary Care Provider Unavailabl e Encounter Details Date Type Department Care Team (Late st Contact Info) Description 12/08/2024 12:00 PM IDENTIFICATION TECHNICIAN Lab Visit [facility] [address] [place] [address] Hyperlipidemia with target LDL less than 130 (HRC); Elevated ferritin; Screening for prostate cancer; Screening for diabetes mellitus Social History Tobacco Use Types Packs/Day Years [...] any time in the past [address] [facility], were you homeless or living in a half-way (including now)? No 12/08/2024 Sex and Gender Information Value Date Recorded Sex Assigned at Not on file Legal Sex Male 9:15 PM CDT Gender Identity Not on file Sexual Orientation Not on file documented as of this encounter Plan of Treatment Not on file documented as of this encounter Procedures Procedure Name Priority Date/Time Associated Diagnosis Comments LIPID PANEL & DIRECT LDL (IF NEEDED) Routine 12/08/2024 11:56 AM IDENTIFICATION TECHNICIAN Hyperlipidemia with target LDL less than 130 (HRC) BASIC METABOLIC PANEL Routine 12/08/2024 11:56 AM IDENTIFICATION TECHNICIAN Hyperlipidemia with target LDL less than 130 (HRC) PROSTATIC SPECIFIC ANTIGEN(SCREEN) Routine 12/08/2024 11:56 AM IDENTIFICATION TECHNICIAN Screening for prostate cancer FERRITIN Routine 12/08/2024 11:56 AM IDENTIFICATION TECHNICIAN Elevated ferritin HGB A1C Routine 12/08/2024 11:56 AM IDENTIFICATION TECHNICIAN Screening for diabetes mellitus ALT (SGPT) Routine 12/08/2024 11:56 AM IDENTIFICATION TECHNICIAN Hyperlipidemia with target LDL less than 130 (HRC) AST Routine 12/08/2024 11:56 AM IDENTIFICATION TECHNICIAN Hyperlipidemia with target LDL less than 130 (HRC) documented in this encounter Results * Hgb A1C (12/08/2024 11:56 AM IDENTIFICATION TECHNICIAN) Hemoglobin A1C (Rapid) 5.3 <=5.6 % 12/08/2024 12:14 PM IDENTIFICATION TECHNICIAN [facility] Estimated Average Glucose (Calc) 105 < 117 mg/dL 12/08/2024 12:14 PM [facility] Comment:Estimated average gl ucose (eAG) converts A1c into glucose units (mg/dL) and estimates average glucose over the past approximately 3 months. The eAG reference interval (<117 mg/dL) corresponds to an A1c of <5.7%. Blood Venipuncture / Unknown 12/08/2024 11:56 AM IDENTIFICATION TECHNICIAN 12/08/2024 11:56 AM IDENTIFICATION TECHNICIAN [facility]ATORY - 12/08/2024 12:14 PM IDENTIFICATION TECHNICIAN The test method used for this Hemoglobin A1c result can experience interference from elevated hemoglobin and other hemoglobin variants. In patients with results that do not correlate clinically, contact the lab for further direction. Tyrone CARROLL LAB_1 Final Result Performing Organization Address [facility] Co de Phone Number [facility] [address] [place] [address] * Prostatic Specific Antigen (Screen) (12/08/2024 11:56 AM IDENTIFICATION TECHNICIAN) Prostatic Specific Antigen 0.9 0.0 - 4.0 ng/mL 12/08/2024 6:[address] [facility] [place] [facility] Blood Venipuncture / Unknown 12/08/2024 11:56 AM IDENTIFICATION TECHNICIAN 12/08/2024 11:56 AM [facility] [place]ATORY - 12/08/2024 6:44 PM IDENTIFICATION TECHNICIAN The [place] PSA Chemiluminescent immunoassay is used. Results obtained with different test methods or kits cannot be used interchangeably. Tyrone Elliott PA-C LAB_1 Final Result Performing Organization Address [facility] Co de Phone Number [facility] [address] * (ABNORMAL) Lipid Panel and Direct LDL(If Needed) (12/08/2024 11:56 AM IDENTIFICATION TECHNICIAN) Cholesterol 160 0 - 199 mg/dL 12/08/2024 2:53 PM [facility] Triglyceride 52 <=149 mg/dL 12/08/2024 2:53 PM [facility] HDL Cholesterol 34(L) >=40 mg/dL 2:53 PM [facility] LDL, Calculated 116 <130 mg/dL 2:53 PM [facility] Non HDL Chol, Calculated 126 <=159 mg/dL 12/08/2024 2:53 PM [facility] Cholesterol/HDL Ratio 4.7 <=5.0 12/08/2024 2:53 PM [facility] Hours Fasting 16.0 8 - 12 Hours 12/08/2024 2:53 PM [facility] Blood Venipuncture / Unknown 12/08/2024 11:56 AM IDENTIFICATION TECHNICIAN 12/08/2024 11:56 AM IDENTIFICATION TECHNICIAN Tyrone Elliott PA-C LAB_1 Final Result Performing Organization Address [facility] Phone Number [address] * ALT (SGPT) (12/08/2024 11:56 AM IDENTIFICATION TECHNICIAN) ALT (SGPT) 16 0 - 55 U/L 12/08/2024 2:53 PM [facility] Blood Venipuncture / Unknown 12/08/2024 11:56 AM IDENTIFICATION TECHNICIAN 12/08/2024 11:56 AM IDENTIFICATION TECHNICIAN Tyrone CARROLLC LAB_1 Final Result Performing Organization Address [facility] Phone Number [address] * AST (12/08/2024 11:56 AM IDENTIFICATION TECHNICIAN) AST (SGOT) 19 10 - 40 U/L 12/08/2024 2:53 PM [facility] Blood Venipuncture / Unknown 12/08/2024 11:56 AM IDENTIFICATION TECHNICIAN 12/08/2024 11:56 AM IDENTIFICATION TECHNICIAN Tyrone CARROLLC LAB_1 Final Result Performing Organization Address [facility] Phone Number [address] * (ABNORMAL) Ferritin (12/08/2024 11:56 AM IDENTIFICATION TECHNICIAN) Ferritin 313(H) 22 - 275 ng/mL 12/08/2024 7:[address] [facility] [place] [facility] Blood Venipuncture / Unknown 12/08/2024 11:56 AM IDENTIFICATION TECHNICIAN 12/08/2024 11:56 AM IDENTIFICATION TECHNICIAN Tyrone Elliott PA-C LAB_1 Final Result [facility] [address] [facility] [address] * Basic Metabolic Panel (12/08/2024 11:56 AM IDENTIFICATION TECHNICIAN) Pathologist [facility] Sodium 137 136 - 145 mmol/L 12/08/2024 2:53 PM [facility] Potassium 4.6 3.5 - 5.1 mmol/L 12/08/2024 2:53 PM [facility] Chloride 107 98 - 109 mmol/L 12/08/2024 2:53 PM [facility] CO2 25 20 - 29 mmol/L 12/08/2024 2:53 PM [facility] Anion Gap 5 6 - 16 mmol/L 12/08/2024 2:53 PM [facility] Calcium 8.8 8.4 - 10.4 mg/dL 12/08/2024 2:53 PM [facility] BUN 16 7 - 26 mg/dL 12/08/2024 2:53 PM [facility] Creatinine 1.12 0.73 - 1.18 mg/dL 12/08/2024 2:53 PM [facility] Glucose 99 70 - 100 mg/dL 12/08/2024 2:53 PM [facility] Comment:The given reference range is for the fasting state. Non-fasting reference range for glucose is 70 - 180 mg/dL. GFR, Estimated >60 >60 mL/min/1.7 3m2 12/08/2024 2:53 PM [facility] Hours Fasting 16.0 8 - 12 Hours 12/08/2024 2:53 PM [facility] Blood Venipuncture / Unknown 12/08/2024 11:56 AM IDENTIFICATION TECHNICIAN 12/08/2024 11:56 AM IDENTIFICATION TECHNICIAN us Tyrone Elliott PA-C LAB_1 Final Result [facility] [address] [place] [address] documented in this encounter Visit Diagnoses Diagnosis Hyperlipidemia with target LDL less than 130 (HRC) Other and unspecified hyperlipidemia Elevated ferritin Other abnormal blood chemistry Screening for prostate cancer Special screening for malignant neoplasm of prostate Screening for diabetes mellitus documented in this encounter
--- OUTSIDE RECORDS SUMMARY | 2024-12-17 09:43 | XMS_ITS | Clinical Summary ---
Author Organization [facility] Address [address] [place] [address] Care Team Providers Care Aging Room Operator Name Role Phone Unavailable Primary Care Provider Unavailabl e Source Comments You are receiving this document as you are listed as the primary care provider,follow-up provider, or the patient has been referred to you for consultation.This is in compliance with the Medicare and[facility] EHR Incentive Program,which states Providers who transition their patient to another setting of careor provider of care or refers their patient to another provider of care shouldprovide summary care record for each transition of care or referral. [facility] Allergies No known active allergies Medications hydrOXYzine HCl (ATARAX) 25 MG tabletIndicatio ns:Tinnitus of right ear Take 1 Tablet (25 mg) by mouth at bedtime as needed. 60 Tablet 1 4 Active Additional Information Patient not taking.Reported on 11/24/2024 benzonatate (TESSALON) 200 MG capsule Take 1 Capsule (200 mg) by mouth three times a day as needed for Cough for up to 10 days. 30 Capsule 5 12/04/19 25 Active Problems Problem Noted Date Diagnosed Date Hyperlipidemia with target LDL less than 130 05/2024 Overview (07/22/2024): Diagnosis updated by automated process. Provider to review and confirm. Elevated blood pressure reading 07/22/2024 Encounters Date Type Department Care Team Description 12/11/2024 11:00 AM RETREAD SUPERVISOR E-Visit [facility] [address] [place] [address] Tyrone Elliott PA-C Chief Comp: Pre-visit Planning 12/09/2024 Results Follow-Up [facility] [address] [place] [address] Tyrone Elliott PA-C 12/08/2024 12:00 PM RETREAD SUPERVISOR Lab Visit [facility] [address] [place] [address] Hyperlipidemia with target LDL less than 130 (HRC); Elevated ferritin; Screening for prostate cancer; Screening for diabetes mellitus 11/24/2024 2:00 PM RETREAD SUPERVISOR [facility] [address] [facility] [address] [place] [address] Mary Ann Traylor MD Viral URI; Acute cough 11/20/2024 11:30 AM RETREAD SUPERVISOR E-Visit [facility] [address] [place] [address] Tyrone Elliott PA-C Dx: Hyperlipidemia with target LDL less than 130 (HRC) (Primary Dx) from Last 3 Months Immunizations Immunization Administration Dates Next Due Pfizer Monovalent 12+ Purple Top 09/13/2021,06/15 Tdap 01/11/2023 Zoster RZV (Shingrix) 01/11/2023 Social History Tobacco Use Types Packs/Day Years Used Date Smoking Tobacco: Never Smokeless Tobacco: Never Tobacco Cessation:Counseling Given: Not Answered Comments:occasional chewing tab. Alcohol Use Standard Drinks/Week [...] any time in the past 12 m [facility], were you homeless or living in a half-way (including now)? No 12/08/2024 Sex and Gender Information Value Date Recorded Sex Assigned at Not on file Legal Sex Male 9:15 PM CDT Gender Identity Not on file Sexual Orientation Not on file Last Filed Vital Signs Vital Sign Reading Time Taken Comments Blood Pressure 130/78 11/24/2024 1:40 PM RETREAD SUPERVISOR Pulse 69 11/24/2024 1:40 PM RETREAD SUPERVISOR Temperature 36.7 C (98 F) 11/24/2024 1:40 PM RETREAD SUPERVISOR Respiratory Rate 16 11/24/2024 1:40 PM RETREAD SUPERVISOR Oxygen Saturation 100% 11/24/2024 1:40 PM RETREAD SUPERVISOR Inhaled Oxygen Concentration - - Weight 112 kg (247 lb) 11/15/2023 9:59 AM RETREAD SUPERVISOR Height 189.6 cm (6' 2.65) 01/12/2017 1:06 PM CD T Body Mass Index 31.16 01/12/2017 1:06 PM CDT Plan of Treatment Health Maintenance Due Date Last Done Comments Colon Cancer Screening Plan Due 1968 Adult Preventive Visit 1986 HepB (1) 1987 Pneumococcal 50+ Yrs (1 of 1 - PCV) 2018 Zoster/Shingles (2 of 2) 03/08/2023 01/11/2023 COVID-19 Vaccine (3 - 2023-2 5 season) 2024 09/13/2021, 06/29/2021 Influenza (#1) 2024 PSA Screening Discussion 12/08/2025 025, 01/12/2023 Prediabetes: HGBA1C 12/08/2025 12/08/2024, 07/22/2024, 01/12/2023 Cholesterol 12/08/2029 12/08/2024, 07/22/2024, 01/12/2023 DTaP/Tdap/Td (2 - Tdap) 01/11/2033 01/11/2023 HIV Screening (Preventive Services) Completed 11/15/2022 (Completed) Hep C Screening (Preventive Services) Completed 11/15/2022 (Completed) HepA Aged Out No longer eligi ble based on patient's age to complete this topic Hib Aged Out No longer eligi ble based on patient's age to complete this topic IPV (Polio) Aged Out No longer eligi ble based on patient's age to complete this topic MCV4 Aged Out No longer eligi ble based on patient's age to complete this topic Meningococcal B Aged Out No longer el igible based on patient's age to complete this topic Procedures Procedure Name Priority Date/Time Associated Diagnosis Comments HGB A1C Routine 12/08/2024 11:56 AM RETREAD SUPERVISOR Screening for diabetes mellitus PROSTATIC SPECIFIC ANTIGEN(SCREEN) Routine 12/08/2024 11:56 AM RETREAD SUPERVISOR Screening for prostate cancer LIPID PANEL & DIRECT LDL (IF NEEDED) Routine 12/08/2024 11:56 AM RETREAD SUPERVISOR Hyperlipidemia with target LDL less than 130 (HRC) ALT (SGPT) Routine 12/08/2024 11:56 AM RETREAD SUPERVISOR Hyperlipidemia with target LDL less than 130 (HRC) AST Routine 12/08/2024 11:56 AM RETREAD SUPERVISOR Hyperlipidemia with target LDL less than 130 (HRC) FERRITIN Routine 12/08/2024 11:56 AM RETREAD SUPERVISOR Elevated ferritin BASIC METABOLIC PANEL Routine 12/08/2024 11:56 AM RETREAD SUPERVISOR Hyperlipidemia with target LDL less than 130 (HRC) from Last 3 Months Results * (ABNORMAL) Lipid Panel and Direct LDL(If Needed) (12/08/2024 11:56 AM RETREAD SUPERVISOR) Cholesterol 160 0 - 199 mg/dL 12/08/2024 2:53 PM [facility] Triglyceride 52 <=149 mg/dL 12/08/2024 2:53 PM [facility] HDL Cholesterol 34(L) >=40 mg/dL 2:53 PM [facility] LDL, Calculated 116 <130 mg/dL 2:53 PM [facility] Non HDL Chol, Calculated 126 <=159 mg/dL 12/08/2024 2:53 PM [facility] Cholesterol/HDL Ratio 4.7 <=5.0 12/08/2024 2:53 PM [facility] Hours Fasting 16.0 8 - 12 Hours 12/08/2024 2:53 PM [facility] Blood Venipuncture / Unknown 12/08/2024 11:56 AM [facility] 12/08/2024 11:56 AM [facility] us Tyrone Elliott PA-C LAB_1 Final Result [facility] [address] [place] [address] * Basic Metabolic Panel (12/08/2024 11:56 AM [facility]) Sodium 137 136 - 145 mmol/L 12/08/2024 2:53 PM [facility] Potassium 4.6 3.5 - 5.1 mmol/L 12/08/2024 2:53 PM [facility] Chloride 107 98 - 109 mmol/L 12/08/2024 2:53 PM [facility] CO2 25 20 - 29 mmol/L 12/08/2024 2:53 PM [facility] Anion Gap 5 6 - 16 mmol/L 12/08/2024 2:53 PM [facility] Calcium 8.8 8.4 - 10.4 mg/dL 12/08/2024 2:53 PM [facility] BUN 16 7 - 26 mg/dL 12/08/2024 2:53 PM [facility] Creatinine 1.12 0.73 - 1.18 mg/dL 12/08/2024 2:53 PM [facility] Glucose 99 70 - 100 mg/dL 12/08/2024 2:53 PM [facility] Comment:The given reference range is for the fasting state. Non-fasting reference range for glucose is 70 - 180 mg/dL. GFR, Estimated >60 >60 mL/min/1.7 3m2 12/08/2024 2:53 PM [facility] Hours Fasting 16.0 8 - 12 Hours 12/08/2024 2:53 PM [facility] Blood Venipuncture / Unknown 12/08/2024 11:56 AM RETREAD SUPERVISOR 12/08/2024 11:56 AM RETREAD SUPERVISOR Tyrone Elliott PA-C LAB_1 Final Result Performing Organization Address [facility] de Phone Number [facility] [address] [place] [address] * Prostatic Specific Antigen (Screen) (12/08/2024 11:56 AM RETREAD SUPERVISOR) Prostatic Specific Antigen 0.9 0.0 - 4.0 ng/mL 12/08/2024 6:44 PM RETREAD SUPERVISOR [facility] Blood Venipuncture / Unknown 12/08/2024 11:56 AM RETREAD SUPERVISOR 12/08/2024 11:56 AM RETREAD SUPERVISOR Narrative [facility] - 12/08/2024 6:44 PM RETREAD SUPERVISOR The [place] PSA Chemiluminescent immunoassay is used. Results obtained with different test methods or kits cannot be used interchangeably. Tyrone Elliott PA-C LAB_1 Final Result Performing Organization Address [facility] Co de Phone Number [facility] [address] * (ABNORMAL) Ferritin (12/08/2024 11:56 AM RETREAD SUPERVISOR) Ferritin 313(H) 22 - 275 ng/mL 12/08/2024 7:20 PM RETREAD SUPERVISOR [facility] Blood Venipuncture / Unknown 12/08/2024 11:56 AM RETREAD SUPERVISOR 12/08/2024 11:56 AM RETREAD SUPERVISOR Tyrone Elliott PA-C LAB_1 Final Result Performing Organization Address [facility] Co de Phone Number [facility] [address] * Hgb A1C (12/08/2024 11:56 AM RETREAD SUPERVISOR) Hemoglobin A1C (Rapid) 5.3 <=5.6 % 12/08/2024 12:14 PM RETREAD SUPERVISOR [facility] Estimated Average Glucose (Calc) 105 < 117 mg/dL 12/08/2024 12:14 PM RETREAD SUPERVISOR [facility] Comment:Estimated average gl ucose (eAG) converts A1c into glucose units (mg/dL) and estimates average glucose over the past approximately 3 months. The eAG reference interval (<117 mg/dL) corresponds to an A1c of <5.7%. Blood Venipuncture / Unknown 12/08/2024 11:56 AM RETREAD SUPERVISOR 12/08/2024 11:56 AM RETREAD SUPERVISOR Narrative [facility] - 12/08/2024 12:14 PM RETREAD SUPERVISOR The test method used for this Hemoglobin A1c result can experience interference from elevated hemoglobin and other hemoglobin variants. In patients with results that do not correlate clinically, contact the lab for further direction. Tyrone Elliott PA-C LAB_1 Final Result Performing Organization Address [facility] de Phone Number [facility] [address] [place] [address] * ALT (SGPT) (12/08/2024 11:56 AM RETREAD SUPERVISOR) [facility] ALT (SGPT) 16 0 - 55 U/L 12/08/2024 2:53 PM [facility] Blood Venipuncture / Unknown 12/08/2024 11:56 AM RETREAD SUPERVISOR 12/08/2024 11:56 AM RETREAD SUPERVISOR Tyrone Elliott PA-C LAB_1 Final Result Performing Organization Address [facility] de Phone Number [facility] [address] [place] [address] * AST (12/08/2024 11:56 AM RETREAD SUPERVISOR) AST (SGOT) 19 10 - 40 U/L 12/08/2024 2:53 PM RETREAD SUPERVISOR [facility] Blood Venipuncture / Unknown 12/08/2024 11:56 AM RETREAD SUPERVISOR 12/08/2024 11:56 AM RETREAD SUPERVISOR us Tyrone Elliott PA-C LAB_1 Final Result [facility] [address] [place] [address], [facility] from Last 3 Months Insurance [employer]
--- OUTSIDE RECORDS SUMMARY | 2024-12-17 09:43 | XMS_ITS | Clinical Summary ---
Author Organization [facility] Address [address] [place] [address] [address] Care Team Providers Care Patient Safety Sitter Name Role Phone Ivan Estrada NP Primary Care Provider [phone] Allergies Active Allergy Reactions Criticality Noted Date Comments Seasonal Allergies 07/13/2015 Medications LORazepam (ATIVAN) 1 MG tablet Take 1 tablet (1 mg) by mouth every 6 hours as needed for anxiety 6 tablet 10/06/2020 Active Active Problems Problem Noted Date Diagnosed Date Hyperlipidemia with target LDL less than 130 Overview (08/16/2015): Diagnosis updated by automated process. Provider to review and confirm. Elevated blood pressure Family History Medical History Relation Comments Coronary Artery Disease Paternal Grandmother Relation Status Comments Daughter Alive Father Alive Mother Alive Paternal Grandmother Sister Alive Son 1 Alive Son 2 Alive Son 3 Alive Social History Tobacco Use Types Packs/Day Years Used Date Smoking Tobacco: Never Smokeless Tobacco: Current Comments:occasional chew Alcohol Use Standard Drinks/Week Comments Yes 5 (1 standard drink = 0.6 oz pur e alcohol) 10 drinks per week avg Adolescent Education Answer Date Record ed Getting School Help Needed Not on file 07/14 Sex and Gender Information Value Date Recorded Sex Assigned at Not on file 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 Gender Identity Not on file Sexual Orientation Not on file Last Filed Vital Signs Vital Sign Reading Time Taken Comments Blood Pressure 122/80 07/17/2024 2:01 PM CDT Pulse 78 07/17/2024 2:01 PM CDT Temperature 36.6 C (97.8 F) 07/17/2024 10:30 AM CDT Respiratory Rate 20 07/17/2024 10:30 AM CDT Oxygen Saturation 97% 07/17/2024 2:02 PM CDT Inhaled Oxygen Concentration - - Weight 113.4 kg (250 lb) 07/17/2024 10:30 AM CDT Height 188 cm (6' 2) 07/17/2024 10:30 AM CDT Body Mass Index 32.1 07/17/2024 10:30 AM CDT Plan of Treatment Health Maintenance Due Date Last Done Comments ADVANCE CARE PLANNING 1970 ANNUAL REVIEW OF HM ORDERS [address] CT COLONOGRAPHY 1968 FIT 1968 FLEX SIG 1968 sDNA (Cologuard) 1968 YEARLY PREVENTIVE VISIT 1971 COLONOSCOPY 1978 COLORECTAL CANCER SCREENING 1978 HIV SCREENING 1983 HEPATITIS C SCREENING 1986 HEPATITIS B IMMUNIZATION (1 of 3 - 19+ 3-dose series) 1987 LIPID 04/22/2016 04/22/2015 Pneumococcal Vaccine: 50+ Years (1 of 1 - PCV) 2018 ZOSTER IMMUNIZATION (2 of 2) 03/08/2023 01/11/2023 COVID-19 Vaccine (3 - season) 2024 09/13/2021, 06/29/2021 INFLUENZA VACCINE (#1) 2024 PHQ-2 (once per calendar year) 2024 GLUCOSE 07/17/2027 07/17/2024, 0312/2022, 01/29/2021, Additional history exists DTAP/TDAP/TD IMMUNIZATION (2 - Td or Tdap) 01/11/2033 01/11/2023 HPV IMMUNIZATION Aged Out No longer e ligible based on patient's age to complete this topic MENINGITIS IMMUNIZATION Aged Out No l onger eligible based on patient's age to complete this topic Procedures Procedure Name Priority Date/Time Associated Diagnosis Comments BASIC METABOLIC PANEL STAT 07/17/2024 11:01 AM CDT LIPID PROFILE Routine 04/22/2015 5:30 AM CDT NSTEMI (non-ST elevated myocardial infarction) (H) from Last 3 Months or Most Recently Relevant to Health Maintenance Results * (ABNORMAL) Basic metabolic panel (07/17/2024 11:01 AM CDT) Sodium 140 135 - 145 mmol/L 07/17/2024 11:34 AM CDT LABORATORY Potassium 4.9 3.4 - 5.3 mmol/L 07/17/2024 11:34 AM CDT LABORATORY Chloride 106 98 - 107 mmol/L 07/17/2024 11:34 AM CDT LABORATORY Carbon Dioxide (CO2) 25 22 - 29 mmol/L 07/17/2024 11:34 AM CDT LABORATORY Anion Gap 9 7 - 15 mmol/L 07/17/2024 11:34 AM CDT LABORATORY Urea Nitrogen 9.1 6.0 - 20.0 mg/dL 07/17/2024 11:34 AM T LABORATORY Creatinine 0.97 0.67 - 1.17 mg/dL 07/17/2024 11:34 AM T LABORATORY GFR Estimate >90 >60 mL/min/1.7 3m2 07/17/2024 11:34 AM T LABORATORY Comment:eGFR calculated usin 2020 CKD-EPI equation. Calcium 9.0 8.8 - 10.4 mg/dL 07/17/2024 11:34 AM T LABORATORY Comment:Reference intervals for this test were updated on 04/29/2024 to reflect our healthy population more accurately. There may be differences in the flagging of prior results with similar values performed with this method. Those prior results can be interpreted in the context of the updated reference intervals. Glucose 122(H) 70 - 99 mg/dL 07/17/2024 11:34 AM T LABORATORY Blood BLOOD SPECIMEN / Unknown Venipuncture / Unknown 07/17/2024 11:01 AM CDT 07/17/2024 11:08 AM CDT us Panda Lomas MD LAB - BLO OD ORDERABLES Final Result LABORATORY [facility] Acute Care Lab [address] 1[address] floor, [address] [place] [address], [facility] [phone] * (ABNORMAL) Lipid profile (04/22/2015 5:30 AM CDT) Cholesterol 150 <200 mg/dL [facility] Comment: LDL Cholesterol is the primary guide to therapy. The NCEP recommends further evaluation of: patients with cholesterol greater than 200 mg/dL if additional risk factors are present, cholesterol greater than 240 mg/dL, triglycerides greater than 150 mg/dL, or HDL less than 40 mg/dL. Triglycerides 187(H) 0 - 150 mg/dL [facility] HDL Cholesterol 36(L) >40 mg/dL [facility] LDL Cholesterol Calculated 77 0 - 129 mg/dL [facility] Comment: LDL Cholesterol is the primary guide to therapy: LDL-cholesterol goal in high risk patients is <100 mg/dL and in very high risk patients is <70 mg/dL. VLDL-Cholesterol 37(H) 0 - 30 mg/dL [facility] Cholesterol/HDL Ratio 4.2 0.0 - 5.0 [facility] Blood specimen (specimen) 04/22/2015 5:30 AM CDT 04/22/2015 5:47 AM CDT Panda Britt MD LAB - BLOOD ORDERABLES Fi nal Result [facility] [address] [place] [address], [facility] [phone] from Last 3 Months or Most Recently Relevant to Health Maintenance Insurance [employer] Advance Directives For more information, please contact: [phone] * Full Code (Latest Code Status on File) Date Activated Date Inactivated Comments 04/22/2015 11:24 AM 12/30/2019 6:09 AM * Full Code Date Activated Date Inactivated Comments 04/21/2015 1:01 PM 04/22/2015 11:24 AM Care Teams Patient Safety Sitter Relationship Specialty Start Date End Date Ivan Estrada NP PCP - General Nurse Practitioner 07/17/24
--- OUTSIDE RECORDS SUMMARY | 2024-12-17 09:43 | XMS_ITS | Encounter Summary ---
Author Organization [employer] Address [address] [place] [address] Care Team Providers Care Space Scheduler Name Role Phone Unavailable Primary Care Provider Unavailabl e Reason for Visit * Reason Comments Cough Encounter Details Date Type Department Care Team (Late st Contact Info) Description 11/24/2024 2:00 PM FRUIT PEELER Office Visit [facility] [address] [place] [address] Mary Ann Traylor MD [address] [place] [address] Viral URI; Acute cough Social History Tobacco Use Types Packs/Day Years [...] on file documented as of this encounter Last Filed Vital Signs Vital Sign Reading Time Taken Comments Blood Pressure 130/78 11/24/2024 1:40 PM FRUIT PEELER Pulse 69 11/24/2024 1:40 PM FRUIT PEELER Temperature 36.7 C (98 F) 11/24/2024 1:40 PM FRUIT PEELER Respiratory Rate 16 11/24/2024 1:40 PM FRUIT PEELER Oxygen Saturation 100% 11/24/2024 1:40 PM FRUIT PEELER Inhaled Oxygen Concentration - - Weight - - Height - - Body Mass Index - - documented in this encounter Patient Instructions * Patient Instructions* Mary Ann Traylor MD - 11/24/2024 2:00 PM FRUIT PEELER Get the lump on your earlobe biopsied in case it is a skin cancer Push fluids, rest, take an over the counter cold medicine if you find it helpful. Take ibuprofen 600 mg every 6 hours and/or Tylenol 1000 mg every 6 hours as needed for pain or fever. Recheck as needed if your symptoms are not improving or you are getting worse instead of better. This viral infection could be Covid or influenza. In general we feel people are contagious until they have been sick for at least 5 days AND have been fever free for 24 hours AND the cough is improving T PEELER * Attachments The following attachments cannot be sent through Care Everywhere. * Cough (Macanese) * URI (Upper Respiratory Infection) (Macanese) documented in this encounter Progress Notes * Mary Ann Traylor MD - 11/24/2024 2:00 PM CST [facility] Patient: Yakov Simon Date of : 1970 (54 y.o.) Subjective Chief Complaint: Chief Complaint Patient presents with Cough Nursing Notes: Kiah Smith RN 11/24/24 6638 Signed Cough and chest congestion for the past 5 days, worse over the past 2. Denies fevers. History of Present Illness: Yakov Simon is a 54 y.o.male. Patient complains of symptoms of a URI. Onset of symptoms was 5 days ago. Symptoms include . Patient denies: fever . gradually worsening since that time. Cough: without wheezing, dyspnea or hemoptysis, productive of green/yellow sputum Adverse Drug Reactions: Patient has no known allergies. Medications: benzonatate and hydrOXYzine HCl Social History: Social History Tobacco Use Smoking status: Never Smokeless tobacco: Never Tobacco comments: occasional chewing tab. Vaping Use Vaping status: Never Used Substance Use Topics Alcohol use: Yes Alcohol/week: 4.0 standard drinks of alcohol Types: 4 Standard drinks or equivalent per week Drug use: Never Review of Systems: Review of Systems is negative except as noted above. Objective Physical Exam: Vital Signs: BP 130/78 (BP Location: Right Arm, BP Cuff Size: Regular - Long) Pulse 69 Temp 36.7 ??C (98 ??F) (Oral) Resp 16 SpO2 100% General: Appears alert and non distressed, He appears non toxic. Blood pressure 130/78, pulse 69, temperature 36.7 ??C (98 ??F), temperature source Oral, resp. rate16, SpO2 100%. HEENT: Head normocephalic and atraumatic Eyes Normal, conjunctiva normal without injection. PERRL. Ears: Right TM normal Left TM normal, external auditory canals without drainage. Throat: mild erythema, no peritonsillar masses or swelling. Neck: Soft, without cervical lymphadenopathy, no meningeal signs. Chest: normal air entry, no rhonchi and wheezes. Heart: HS normal with no murmurs. Left ear elizabeth has a papule that is firm, slightly erythematous with a slightly scaly center, likelya basal cell CA Laboratory Testing: No results found for any visits on 11/24/24. Radiology: No results found. MDM: viral infection with cough. Treat symptoms and follow up on the ear lobe lesion with primary care provider Interventions: Orders Placed This Encounter benzonatate (TESSALON) 200 MG capsule Assessment 1. Viral URI 2. Acute cough Plan Patient Discharge Medications & Instructions: Medications Prescribed this Visit Disp Refills Start End benzonatate (TESSALON) 200 MG capsule 30 Capsule 0 11/24/2024 12/04/2024 Take 1 Capsule (200 mg) by mouth three times a day as needed for Cough for up to 10 days. Oral Patient Instructions Get the lump on your earlobe biopsied in case it is a skin cancer Push fluids, rest, take an over the counter cold medicine if you find it helpful. Take ibuprofen 600 mg every 6 hours and/or Tylenol 1000 mg every 6 hours as needed for pain or fever. Recheck as needed if your symptoms are not improving or you are getting worse instead of better. This viral infection could be Covid or influenza. In general we feel people are contagious until they have been sick for at least 5 days AND have been fever free for 24 hours AND the cough is improving Mary Ann Traylor MD T PEELER documented in this encounter Nursing Notes * Kiah Smith RN - 11/24/2024 2:00 PM CST Cough and chest congestion for the past 5 days, worse over the past 2. Denies fevers. T PEELER documented in this encounter Plan of Treatment Not on file documented as of this encounter Visit Diagnoses Diagnosis Viral URI Acute upper respiratory infections of unspecified site Acute cough documented in this encounter
--- NOTE | 2024-12-17 10:34 | CRLHL7_ITS ---
For Patients: As a result of the Century Cures Act, medical imaging exams and procedure reports are released immediately into your electronic medical record. You may view this report before your referring provider. If you have questions, please contact your health care provider. Indication: chest pain Technique: PA and lateral views of the chest. Comparison: 08/27/2024. Findings: Normal cardiomediastinal silhouette. No focal consolidation, pleural effusions, or visualized pneumothorax. Mild degenerative changes of the visualized spine. Impression: No acute cardiopulmonary disease. Dictated by Raji De Dios MD @ 12/17/2024 11:34:35 AM (Electronically Signed)
[2024-12-17] MEDS: ASPIRIN 81 MG TAB.CHEW 324 MG PO (10:38)
--- OUTSIDE RECORDS SUMMARY | 2024-12-17 10:57 | XMS_ITS | Encounter Summary ---
Author Organization [facility] Address [address] [place] [address] Care Team Providers Care Nuclear Medicine Supervisor Name Role Phone Unavailable Primary Care Provider Unavailabl e Reason for Visit * Reason Comments Pre-visit Planning Entered automaticall y based on patient selection in [employer]. Encounter Details Date Type Department Care Team (Late st Contact Info) Description 11/20/2024 11:30 AM ACID SUPERVISOR E-Visit [facility] [address] [place] [address] Tyrone Elliott PA-C [address] [place] [address] Dx: Hyperlipidemia with target LDL less [...] Results * Hgb A1C (12/08/2024 11:56 AM ACID SUPERVISOR) Hemoglobin A1C (Rapid) 5.3 <=5.6 % 12/08/2024 12:14 PM [facility] Estimated Average Glucose (Calc) 105 < 117 mg/dL 12/08/2024 12:14 PM [facility] Comment:Estimated average gl ucose (eAG) converts A1c into glucose units (mg/dL) and estimates average glucose over the past approximately 3 months. The eAG reference interval (<117 mg/dL) corresponds to an A1c of <5.7%. Blood Venipuncture / Unknown 12/08/2024 11:56 AM ACID SUPERVISOR 12/08/2024 11:[address] [facility]AT[facility] - 12/08/2024 12:14 PM ACID SUPERVISOR The test method used for this Hemoglobin A1c result can experience interference from elevated hemoglobin and other hemoglobin variants. In patients with results that do not correlate clinically, contact the lab for further direction. Tyrone CARROLL LAB_1 Final Result Performing Organization Address [facility] Co de Phone Number [facility] [address] [place] [address] * Prostatic Specific Antigen (Screen) (12/08/2024 11:56 AM ACID SUPERVISOR) Prostatic Specific Antigen 0.9 0.0 - 4.0 ng/mL 12/08/2024 6:44 PM [facility] Blood Venipuncture / Unknown 12/08/2024 11:56 AM ACID SUPERVISOR 12/08/2024 11:56 AM [facility] LABORATORY - 12/08/2024 6:44 PM ACID SUPERVISOR The Fish PSA Chemiluminescent immunoassay is used. Results obtained with different test methods or kits cannot be used interchangeably. Tyrone Elliott PA-C LAB_1 Final Result Performing Organization Address City/[facility]/ZIP Co de Phone Number [facility] [address] [place], [place] [id number] [place] [address] * (ABNORMAL) Lipid Panel and Direct LDL(If Needed) (12/08/2024 11:56 AM ACID SUPERVISOR) Cholesterol 160 0 - 199 mg/dL 12/08/2024 2:53 PM ACID SUPERVISOR [facility] Triglyceride 52 <=149 mg/dL 12/08/2024 2:53 PM [facility] HDL Cholesterol 34(L) >=40 mg/dL 2:53 PM [facility] LDL, Calculated 116 <130 mg/dL 2:53 PM [facility] Non HDL Chol, Calculated 126 <=159 mg/dL 12/08/2024 2:53 PM [facility] Cholesterol/HDL Ratio 4.7 <=5.0 12/08/2024 2:53 PM [facility] Hours Fasting 16.0 8 - 12 Hours 12/08/2024 2:53 PM [facility] Blood Venipuncture / Unknown 12/08/2024 11:56 AM ACID SUPERVISOR 12/08/2024 11:56 AM ACID SUPERVISOR Tyrone Elliott PA-C LAB_1 Final Result Performing Organization Address [facility] Phone Number [address] * ALT (SGPT) (12/08/2024 11:56 AM ACID SUPERVISOR) ALT (SGPT) 16 0 - 55 U/L 12/08/2024 2:53 PM [facility] Blood Venipuncture / Unknown 12/08/2024 11:56 AM ACID SUPERVISOR 12/08/2024 11:56 AM ACID SUPERVISOR Tyrone Elliott PA-C LAB_1 Final Result Performing Organization Address City/[facility]/ZIP Co de Phone Number [address] * AST (12/08/2024 11:56 AM ACID SUPERVISOR) AST (SGOT) 19 10 - 40 U/L 12/08/2024 2:53 PM [facility] Blood Venipuncture / Unknown 12/08/2024 11:56 AM ACID SUPERVISOR 12/08/2024 11:56 AM ACID SUPERVISOR Tyrone Elliott PA-C LAB_1 Final Result [facility] [address] [place] [address] * (ABNORMAL) Ferritin (12/08/2024 11:56 AM ACID SUPERVISOR) Ferritin 313(H) 22 - 275 ng/mL 12/08/2024 7:20 PM ACID SUPERVISOR [facility] Blood Venipuncture / Unknown 12/08/2024 11:56 AM ACID SUPERVISOR 12/08/2024 11:56 AM ACID SUPERVISOR Tyrone Elliott PA-C LAB_1 Final Result Performing Organization Address [facility] Co de Phone Number [facility] [address] * Basic Metabolic Panel (12/08/2024 11:56 AM ACID SUPERVISOR) Pathologist [facility] Sodium 137 136 - 145 mmol/L 12/08/2024 2:53 PM [facility] Potassium 4.6 3.5 - 5.1 mmol/L 12/08/2024 2:53 PM [facility] Chloride 107 98 - 109 mmol/L 12/08/2024 2:53 PM [facility] CO2 25 20 - 29 mmol/L 12/08/2024 2:53 PM [facility] Anion Gap 5 6 - 16 mmol/L 12/08/2024 2:53 PM [facility] Calcium 8.8 8.4 - 10.4 mg/dL 12/08/2024 2:53 PM [facility] BUN 16 7 - 26 mg/dL 12/08/2024 2:53 PM [facility] Creatinine 1.12 0.73 - 1.18 mg/dL 12/08/2024 2:53 PM [facility] Glucose 99 70 - 100 mg/dL 12/08/2024 2:53 PM [facility] Comment:The given reference range is for the fasting state. Non-fasting reference range for glucose is 70 - 180 mg/dL. GFR, Estimated >60 >60 mL/min/1.7 3m2 12/08/2024 2:53 PM [facility] Hours Fasting 16.0 8 - 12 Hours 12/08/2024 2:53 PM [facility] Blood Venipuncture / Unknown 12/08/2024 11:56 AM ACID SUPERVISOR 12/08/2024 11:56 AM ACID SUPERVISOR us Tyrone Elliott PA-C LAB_1 Final Result Performing Organization Address City/State/[facility] Co de Phone Number [facility] [address] [place] [address] documented in this encounter Visit Diagnoses Diagnosis Hyperlipidemia with target LDL less than 130 (HRC)- Primary Other and unspecified hyperlipidemia Elevated ferritin Other abnormal blood chemistry Screening for diabetes mellitus Screening for prostate cancer Special screening for malignant neoplasm of prostate documented in this encounter
--- OUTSIDE RECORDS SUMMARY | 2024-12-17 10:57 | XMS_ITS | Clinical Summary ---
Author Organization [facility] Address [address] [place] [address]. 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 [address] 1[address] floor, [address] [place] [address], [facility] [phone] * (ABNORMAL) Lipid profile (04/22/2015 5:30 AM CDT) Cholesterol 150 <200 mg/dL [facility] Comment: LDL Cholesterol is the primary guide to therapy. The NCEP recommends further evaluation of: patients with cholesterol greater than 200 mg/dL if additional risk factors are present, cholesterol greater than 240 mg/dL, triglycerides greater than 150 mg/dL, or HDL less than 40 mg/dL. Triglycerides 187(H) 0 - 150 mg/dL [facility] HDL Cholesterol 36(L) >40 mg/dL [facility] LDL Cholesterol Calculated 77 0 - 129 mg/dL [facility] Comment: LDL Cholesterol is the primary guide to therapy: LDL-cholesterol goal in high risk patients is <100 mg/dL and in very high risk patients is <70 mg/dL. VLDL-Cholesterol 37(H) 0 - 30 mg/dL [facility] Cholesterol/HDL Ratio 4.2 0.0 - 5.0 [facility] Blood specimen (specimen) 04/22/2015 5:30 AM CDT 04/22/2015 5:47 AM CDT Panda Britt MD LAB - BLOOD ORDERABLES Fi nal Result [facility] [address] [place] [address], [facility] [phone] from Last 3 Months or Most Recently Relevant to Health Maintenance Insurance * Guarantor: Yakov Simon Account Type Relation to Patient Date of Phone Billing Address Personal/Family Self 1970 [id number] [facility] [place] [id number] [employer] Advance Directives For more information, please contact: [phone] * Full Code (Latest Code Status on File) Date Activated Date Inactivated Comments 04/22/2015 11:24 AM 12/30/2019 6:09 AM * Full Code Date Activated Date Inactivated Comments 04/21/2015 1:01 PM 04/22/2015 11:24 AM Care Teams Parking Enforcer Relationship Specialty Start Date End Date Ivan Estrada NP PCP - General Nurse Practitioner 07/17/24
--- OUTSIDE RECORDS SUMMARY | 2024-12-17 10:57 | XMS_ITS | Encounter Summary ---
Author Organization [facility] Address [address] [place] [address] Care Team Providers Care Supervisor Blood Name Role Phone Unavailable Primary Care Provider Unavailabl e Reason for Visit * Reason Comments Pre-visit Planning Entered automaticall y based on patient selection in [email or web address]. Encounter Details Date Type Department Care Team (Late st Contact Info) Description 12/11/2024 11:00 AM BUSINESS CONTROL SPECIALIST E-Visit [facility] [address] [place] [address] Tyrone Elliott, LIZZIE [address] [place] [address] Chief Comp: Pre-visit Planning Social History [...] time in the past 12 m [facility], were you homeless or living in a care home (including now)? No 12/08/2024 Sex and Gender Information Value Date Recorded Sex Assigned at Not on file Legal Sex Male 9:15 PM CDT Gender Identity Not on file Sexual Orientation Not on file documented as of this encounter Nursing Notes * Conrad Harper - 12/11/2024 3:30 PM CST Care team please advise if a Same Day Appt is ok to use. NESS CONTROL SPECIALIST documented in this encounter Plan of Treatment Not on file documented as of this encounter Visit Diagnoses Not on filedocumented in this encounter
--- OUTSIDE RECORDS SUMMARY | 2024-12-17 10:57 | XMS_ITS | Clinical Summary ---
Author Organization [facility] Address [address] [place] [address] Care Team Providers Care Marketing Operations Analyst Name Role Phone Unavailable Primary Care Provider Unavailabl e Source Comments You are receiving this document as you are listed as the primary care provider,follow-up provider, or the patient has been referred to you for consultation.This is in compliance with the Medicare and[facility] EHR Incentive Program,which states Providers who transition their patient to another setting of careor provider of care or refers their patient to another provider of care shouldprovide summary care record for each transition of care or referral. [facility] Allergies No known active allergies Medications hydrOXYzine [...] Department Care Team Description 12/11/2024 11:00 AM ENVIRONMENTAL ADVISOR E-Visit [facility] [address] [place] [address] Tyrone Elliott PA-C Chief Comp: Pre-visit Planning 12/09/2024 Results Follow-Up [facility] [address] [place] [address] Tyrone Elliott PA-C 12/08/2024 12:00 PM ENVIRONMENTAL ADVISOR Lab Visit [facility] [address] [place] [address] Hyperlipidemia with target LDL less than 130 (HRC); Elevated ferritin; Screening for prostate cancer; Screening for diabetes mellitus 11/24/2024 2:00 PM ENVIRONMENTAL ADVISOR Office Visit [facility] [address] [facility] [address] [place] [address] Mary Ann Traylor MD Viral URI; Acute cough 11/20/2024 11:30 AM ENVIRONMENTAL ADVISOR E-Visit [facility] [address] [place] [address] Tyrone Elliott PA-C Dx: Hyperlipidemia with target [...] any time in the past 12 m [facility], were you homeless or living in a senior living (including now)? No 12/08/2024 Sex and Gender Information Value Date Recorded Sex Assigned at Not on file Legal Sex Male 9:15 PM CDT Gender Identity Not on file Sexual Orientation Not on file Last Filed Vital Signs Vital Sign Reading Time Taken Comments Blood Pressure 130/78 11/24/2024 1:40 PM ENVIRONMENTAL ADVISOR Pulse 69 11/24/2024 1:40 PM ENVIRONMENTAL ADVISOR Temperature 36.7 C (98 F) 11/24/2024 1:40 PM ENVIRONMENTAL ADVISOR Respiratory Rate 16 11/24/2024 1:40 PM ENVIRONMENTAL ADVISOR Oxygen Saturation 100% 11/24/2024 1:40 PM ENVIRONMENTAL ADVISOR Inhaled Oxygen Concentration - - Weight 112 kg (247 lb) 11/15/2023 9:59 AM ENVIRONMENTAL ADVISOR Height 189.6 cm (6' 2.65) 01/12/2017 1:06 [...] Comments HGB A1C Routine 12/08/2024 11:56 AM ENVIRONMENTAL ADVISOR Screening for diabetes mellitus PROSTATIC SPECIFIC ANTIGEN(SCREEN) Routine 12/08/2024 11:56 AM ENVIRONMENTAL ADVISOR Screening for prostate cancer LIPID PANEL & DIRECT LDL (IF NEEDED) Routine 12/08/2024 11:56 AM ENVIRONMENTAL ADVISOR Hyperlipidemia with target LDL less than 130 (HRC) ALT (SGPT) Routine 12/08/2024 11:56 AM ENVIRONMENTAL ADVISOR Hyperlipidemia with target LDL less than 130 (HRC) AST Routine 12/08/2024 11:56 AM ENVIRONMENTAL ADVISOR Hyperlipidemia with target LDL less than 130 (HRC) FERRITIN Routine 12/08/2024 11:56 AM ENVIRONMENTAL ADVISOR Elevated ferritin BASIC METABOLIC PANEL Routine 12/08/2024 11:56 AM ENVIRONMENTAL ADVISOR Hyperlipidemia with target LDL less than 130 (HRC) from Last 3 Months Results * (ABNORMAL) Lipid Panel and Direct LDL(If Needed) (12/08/2024 11:56 AM ENVIRONMENTAL ADVISOR) Cholesterol 160 0 - 199 mg/dL 12/08/2024 2:53 PM [facility] Triglyceride 52 <=149 mg/dL 12/08/2024 2:53 PM [facility] HDL Cholesterol 34(L) >=40 mg/dL 2:53 PM [facility] LDL, Calculated 116 <130 mg/dL 2:53 PM [facility] Non HDL Chol, Calculated 126 <=159 mg/dL 12/08/2024 2:53 PM [facility] Cholesterol/HDL Ratio 4.7 <=5.0 12/08/2024 2:53 PM [facility] Hours Fasting 16.0 8 - 12 Hours 12/08/2024 2:53 PM [facility] Blood Venipuncture / Unknown 12/08/2024 11:56 AM [facility] 12/08/2024 11:56 AM [facility] us Tyrone Elliott PA-C LAB_1 Final Result [facility] [address] [place] [address] * Basic Metabolic Panel (12/08/2024 11:56 AM [facility]) Sodium 137 136 - 145 mmol/L 12/08/2024 2:53 PM [facility] Potassium 4.6 3.5 - 5.1 mmol/L 12/08/2024 2:53 PM [facility] Chloride 107 98 - 109 mmol/L 12/08/2024 2:53 PM [facility] CO2 25 20 - 29 mmol/L 12/08/2024 2:53 PM [facility] Anion Gap 5 6 - 16 mmol/L 12/08/2024 2:53 PM [facility] Calcium 8.8 8.4 - 10.4 mg/dL 12/08/2024 2:53 PM [facility] BUN 16 7 - 26 mg/dL 12/08/2024 2:53 PM [facility] Creatinine 1.12 0.73 - 1.18 mg/dL 12/08/2024 2:53 PM [facility] Glucose 99 70 - 100 mg/dL 12/08/2024 2:53 PM [facility] Comment:The given reference range is for the fasting state. Non-fasting reference range for glucose is 70 - 180 mg/dL. GFR, Estimated >60 >60 mL/min/1.7 3m2 12/08/2024 2:53 PM [facility] Hours Fasting 16.0 8 - 12 Hours 12/08/2024 2:53 PM [facility] Blood Venipuncture / Unknown 12/08/2024 11:56 AM ENVIRONMENTAL ADVISOR 12/08/2024 11:56 AM ENVIRONMENTAL ADVISOR Tyrone Elliott PA-C LAB_1 Final Result Performing Organization Address [facility] de Phone Number [facility] [address] [place] [address] * Prostatic Specific Antigen (Screen) (12/08/2024 11:56 AM ENVIRONMENTAL ADVISOR) Prostatic Specific Antigen 0.9 0.0 - 4.0 ng/mL 12/08/2024 6:44 PM ENVIRONMENTAL ADVISOR [facility] Blood Venipuncture / Unknown 12/08/2024 11:56 AM ENVIRONMENTAL ADVISOR 12/08/2024 11:56 AM ENVIRONMENTAL ADVISOR Narrative [facility] - 12/08/2024 6:44 PM ENVIRONMENTAL ADVISOR The Fish PSA Chemiluminescent immunoassay is used. Results obtained with different test methods or kits cannot be used interchangeably. Tyrone Elliott PA-C LAB_1 Final Result Performing Organization Address City/[facility] Co de Phone Number [facility] [address] * (ABNORMAL) Ferritin (12/08/2024 11:56 AM ENVIRONMENTAL ADVISOR) Ferritin 313(H) 22 - 275 ng/mL 12/08/2024 7:20 PM ENVIRONMENTAL ADVISOR [facility] Blood Venipuncture / Unknown 12/08/2024 11:56 AM ENVIRONMENTAL ADVISOR 12/08/2024 11:56 AM ENVIRONMENTAL ADVISOR Tyrone Elliott PA-C LAB_1 Final Result Performing Organization Address [facility] Co de Phone Number [facility] [address] * Hgb A1C (12/08/2024 11:56 AM ENVIRONMENTAL ADVISOR) Hemoglobin A1C (Rapid) 5.3 <=5.6 % 12/08/2024 12:14 PM ENVIRONMENTAL ADVISOR [facility] Estimated Average Glucose (Calc) 105 < 117 mg/dL 12/08/2024 12:14 PM ENVIRONMENTAL ADVISOR [facility] Comment:Estimated average gl ucose (eAG) converts A1c into glucose units (mg/dL) and estimates average glucose over the past approximately 3 months. The eAG reference interval (<117 mg/dL) corresponds to an A1c of <5.7%. Blood Venipuncture / Unknown 12/08/2024 11:56 AM ENVIRONMENTAL ADVISOR 12/08/2024 11:56 AM ENVIRONMENTAL ADVISOR Narrative [facility] - 12/08/2024 12:14 PM ENVIRONMENTAL ADVISOR The test method used for this Hemoglobin A1c result can experience interference from elevated hemoglobin and other hemoglobin variants. In patients with results that do not correlate clinically, contact the lab for further direction. Tyrone Elliott PA-C LAB_1 Final Result Performing Organization Address [facility] de Phone Number [facility] [address] [place] [address] * ALT (SGPT) (12/08/2024 11:56 AM ENVIRONMENTAL ADVISOR) [facility] ALT (SGPT) 16 0 - 55 U/L 12/08/2024 2:53 PM [facility] Blood Venipuncture / Unknown 12/08/2024 11:56 AM ENVIRONMENTAL ADVISOR 12/08/2024 11:56 AM ENVIRONMENTAL ADVISOR Tyrone Elliott PA-C LAB_1 Final Result Performing Organization Address [facility] de Phone Number [facility] [address] [place] [address] * AST (12/08/2024 11:56 AM ENVIRONMENTAL ADVISOR) AST (SGOT) 19 10 - 40 U/L 12/08/2024 2:53 PM ENVIRONMENTAL ADVISOR [facility] Blood Venipuncture / Unknown 12/08/2024 11:56 AM ENVIRONMENTAL ADVISOR 12/08/2024 11:56 AM ENVIRONMENTAL ADVISOR us Tyrone Elliott PA-C LAB_1 Final Result [facility] [address] [place] [address], [facility] from Last 3 Months Insurance FULLY INSURED
--- OUTSIDE RECORDS SUMMARY | 2024-12-17 10:57 | XMS_ITS | Clinical Summary ---
Author Organization [facility] Address [address] [place] [address] Care Team Providers Care Boiler Erector Name Role Phone Pcp, No Primary Care Provider Unavailabl e Allergies No known active allergies Social History Tobacco Use Types Packs/Day Years Used Date Smoking Tobacco: Never Assessed Social Connections Answer Date Recorded Frequency of Communication with Friends and Fami ly Not on file 12/19/2021 Sex and Gender Information Value Date Recorded Sex Assigned at Not on file Legal Sex Male 10:00 AM CONTROL CLERK SUBASSEMBLY Gender Identity Not on file Sexual Orientation Not on file Last Filed Vital Signs Vital Sign Reading Time Taken Comments Blood Pressure - - Pulse 64 12/19/2021 10:12 AM CONTROL CLERK SUBASSEMBLY Temperature 36.4 C (97.5 F) 12/19/2021 10:12 AM CONTROL CLERK SUBASSEMBLY Respiratory Rate - - Oxygen Saturation 95% 12/19/2021 10:12 AM CONTROL CLERK SUBASSEMBLY Inhaled Oxygen Concentration - - Weight - [...] for age 50-64 06/15/2024 Insurance [employer]ES [id number] [employer]ONES [id number] Care Teams Boiler Erector Relationship Specialty Start Date End Date Pcp, No . PCP - General 01/09/23
--- OUTSIDE RECORDS SUMMARY | 2024-12-17 10:58 | XMS_ITS | Encounter Summary ---
Author Organization [facility] Address [address] [place] [address] Care Team Providers Care Manager Occupational Name Role Phone Unavailable Primary Care Provider Unavailabl e Reason for Visit * Reason Comments Cough Encounter Details Date Type Department Care Team (Late st Contact Info) Description 11/24/2024 2:00 PM TOLL REPAIRER CENTRAL OFFICE Office Visit [facility] [address] [facility] [address] [place] [address] Mary Ann Traylor MD [address] [place] [address] Viral URI; Acute cough Social [...] Comments Blood Pressure 130/78 11/24/2024 1:40 PM TOLL REPAIRER CENTRAL OFFICE Pulse 69 11/24/2024 1:40 PM TOLL REPAIRER CENTRAL OFFICE Temperature 36.7 C (98 F) 11/24/2024 1:40 PM TOLL REPAIRER CENTRAL OFFICE Respiratory Rate 16 11/24/2024 1:40 PM TOLL REPAIRER CENTRAL OFFICE Oxygen Saturation 100% 11/24/2024 1:40 PM TOLL REPAIRER CENTRAL OFFICE Inhaled Oxygen Concentration - - Weight - - Height - - Body Mass Index - - documented in this encounter Patient Instructions * Patient Instructions* Mary Ann Traylor MD - 11/24/2024 2:00 PM TOLL REPAIRER CENTRAL OFFICE Get the lump on your earlobe biopsied [...] 24 hours AND the cough is improving REPAIRER CENTRAL OFFICE * Attachments The following attachments cannot be sent through Care Everywhere. * Cough (Spanish) * URI (Upper Respiratory Infection) (Spanish) documented in this encounter Progress Notes * Mary Ann Traylor MD - 11/24/2024 2:00 PM CST [facility] Patient: Yakov Simon Date of : 1970 (54 y.o.) Subjective Chief Complaint: Chief Complaint Patient presents with Cough Nursing Notes: Kiah Smith RN 11/24/24 2339 Signed Cough and chest congestion for the [...] cough is improving Mary Ann Traylor MD REPAIRER CENTRAL OFFICE documented in this encounter Nursing Notes * Kiah Smith RN - 11/24/2024 2:00 PM CST Cough and chest congestion for the past 5 days, worse over the past 2. Denies fevers. REPAIRER CENTRAL OFFICE documented in this encounter Plan of Treatment Not on file documented as of this encounter Visit Diagnoses Diagnosis Viral URI Acute upper respiratory infections of unspecified site Acute cough documented in this encounter
[2024-12-17 11:01] LABS: Basophils Percent Auto 0.5 % (0.0-3.0); Eosinophils Percent Auto 3.4 % (0.0-7.0); Hematocrit 44.6 % (37.0-53.0); Immature Granulocytes Pct Auto 0.3 %; Lymphocytes Percent Auto 38.3 % (20-44); Mean Corpuscular HGB Conc 34 gm/dL (32-36); Mean Corpuscular Hemoglobin 30 pg (26-34); Mean Corpuscular Volume 90 fL (80-100); Monocytes Percent Auto 8.3 % (0.0-11.0); Neutrophils Percent Auto 49.2 % (42.0-72.0); Platelet Count* 235 K/uL (140-440); RDW Coefficient of Variation % 11.9 % (11.5-15.5); Red Blood Count 4.96 m/uL (4.30-5.90); White Blood Count* 3.84 K/uL (4.50-11.00)
[2024-12-17 11:04] LABS: Chloride* 105 mmol/L (96-114)
[2024-12-17 11:05] LABS: Potassium* 4.6 mmol/L (3.6-5.1); Sodium* 138 mmol/L (135-149)
[2024-12-17 11:07] LABS: Blood Urea Nitrogen* 13 mg/dL (7-30); Creatinine* 0.8 mg/dL (0.5-1.5); Est. Creatinine Clearance* 123.23; Estimated Glomerular Filt Rate 104 ml/min
[2024-12-17 11:08] LABS: Anion Gap 8 mEq/L (7-15); Calcium* 8.9 mg/dL (8.4-10.6); Carbon Dioxide* 25 mmol/L (20-32); Glucose* 117 mg/dL (60-115)
[2024-12-17 11:12] LABS: C Reactive Protein* < 0.5 mg/dL (0.5-1.0); Slide Review Reflex No
--- NOTE | 2024-12-17 11:44 | ED_ITS ---
HPI - General Adult General Date Seen: 12/17/24 Chief complaint: Chest Pain Stated complaint: Chest pain Time Seen by Provider: 12/17/24 09:42 History of Present Illness HPI narrative: Patient is a 54-year-old male here with chest pain which started over 12 hours ago. He describes it as pressure. He notes a couple of times over the past week or so he has had head rashes when he stands up quickly, he has not had any syncope or palpitations. Has not been short of breath. No fevers or cough. He has had pain exactly like this a couple of times previously, was seen here once in 2022 and had a negative evaluation cleaning stress test at that time. I saw him in the fall of 2023, repeat evaluation at that time excluding a stress test was normal. He says he has been fine since then, he has been getting into shape and so he has been exercising a lot and says he has been practicing intermittent fasting, generally eating in a window between 2:00 p.m. and 6:00 p.m.. It sounds like some days he gets adequate calories and other days he probably is not getting adequate calories. He reports that he has been losing weight, is feeling a lot more fit. Has not had any exercise intolerance or exertional chest pain. He does not smoke, no primary relatives with coronary artery disease and no other personal medical history. Related Data Home Medications ?Medication ?Instructions ?Recorded ?Confirmed No Known Home Medications 01/06/23 08/27/24 Allergies Allergy/AdvReac Type Severity Reaction Status Date / Time No Known Drug Allergies Allergy Verified 08/27/24 13:59 Review of Systems Status of ROS: Reports: 10 or more systems reviewed and unremarkable except as noted in History and below [facility] Social History Smoking Status: Never smoker Do you use any of these nicotine containing products: None Second hand tobacco smoke exposure: No How often do you have a drink containing alcohol: 2-4 times a month How many standard drinks containing alcohol do you have on a typical day: 3 or 4 How often do you have six or more drinks on one occasion: Never AUDIT-C Alcohol total score: 3 Non-prescribed substance use: denies use service: No Exam Narrative: Exam Narrative: Vital signs reviewed In general, alert, nontoxic Head: Normocephalic, atraumatic. Eyes: Sclera clear. Pupils equal and reactive. ENT: Mucous membranes moist. Neck: Supple without adenopathy. Heart: Regular rate and rhythm without murmur. Lungs: Clear. No increased work of breathing, crackles or wheezes. Abdomen: Soft, nontender to palpation. Extremities: Well perfused, pulses intact. No significant edema. Neurologic: Alert, conversant. Speech fluent, face symmetric. Moves all extremities equally. Skin: Warm, dry well perfused. Affect: Normal. Const: Vital Signs, click to edit/add: Vital Signs - 24 hr 12/17/24 10:01 12/17/24 10:25 12/17/24 10:30 Temperature 97.1 F L Pulse Rate 53 L 54 L Pulse Rate [Pulse Oximeter] 54 L Respiratory Rate 18 16 Blood Pressure Blood Pressure [Le ft Upper Arm] 145/84 H Pulse Oximetry 98 98 97 Oxygen Delivery Me thod Room Air 12/17/24 10:42 12/17/24 10:45 12/17/24 11:00 Temperature Pulse Rate 53 L 60 56 L Pulse Rate [Pulse Oximeter] Respiratory Rate 18 16 15 Blood Pressure 131/74 Blood Pressure [Le ft Upper Arm] Pulse Oximetry 97 97 96 Oxygen Delivery Me thod 12/17/24 11:03 12/17/24 11:25 12/17/24 11:30 Temperature Pulse Rate 61 49 L 52 L Pulse Rate [Pulse Oximeter] Respiratory Rate 16 18 17 Blood Pressure 126/69 Blood Pressure [Le ft Upper Arm] Pulse Oximetry 96 98 97 Oxygen Delivery Me thod 12/17/24 11:32 12/17/24 11:45 Temperature Pulse Rate 60 54 L Pulse Rate [Pulse Oximeter] Respiratory Rate 20 Blood Pressure 125/78 Blood Pressure [Le ft Upper Arm] Pulse Oximetry 96 98 Oxygen Delivery Me thod Course Course ED Course: Patient had an EKG after arrival which by my review shows a sinus bradycardia, ventricular rate of 54 with occasional PVCs. He has had occasional PVCs on previous evaluations as well. He is not aware of these. He is somewhat frustrated, he has had these symptoms and is aware that his workup has always been negative, but he says he was up all night, did not sleep at all because he was worried about whether not he should be going in for this new episode of chest pain. We repeated labs here today including a CBC, metabolic panel, troponin, CRP and these are all within normal limits. His point of care troponin is 0. I did a chest x-ray as well which by my review was negative, radiology report reviewed as well and also found negative. It has been a couple of years almost since his last stress test and I do think it is reasonable to have him get another stress test. He has an appointment with his primary doctor scheduled for Sunday of this week, and I think it is reasonable to talk to his primary doctor about getting that scheduled as an outpatient. Return any time for new or worsening symptoms. At this time, no clear explanation for his chest pain. He notes some thoughts around dying, as he did yesterday, mentioning that he has been multiple funerals in the past year of people younger than him. However, he says he does not feel that he has anxiety or really ever feels stress although he acknowledges his schedule is always ?crazy. He says this is no different than usual however and does not feel this is probably playing into these symptoms. Vital Signs Vital signs: Initial Vital Signs Respiratory Effort Normal 12/17/24 10:00 Respiratory Depth Normal 12/17/24 10:00 Respiratory Pattern Normal 12/17/24 10:00 Vital Signs Temperature 97.1 F L 12/17/24 10:01 Pulse Rate 54 L 12/17/24 10:01 Respiratory Rate 18 12/17/24 10:01 Blood Pressure 145/84 H 12/17/24 10:01 Pulse Oximetry 98 12/17/24 10:01 Oxygen Delivery Method Room Air 12/17/24 10:01 Temperature 97.1 F L 12/17/24 10:01 Pulse Rate 54 L 12/17/24 11:45 Respiratory Rate 20 12/17/24 11:32 Blood Pressure 125/78 12/17/24 11:32 Pulse Oximetry 98 12/17/24 11:45 Oxygen Delivery Method Room Air 12/17/24 10:01 Medications Administered Medications: Discontinued Medications Generic Name Dose Route Start Last Admin Trade Name Freq PRN Reason Stop Dose Admin Aspirin 324 mg 12/17/24 10:34 12/17/24 10:38 Aspirin 81 Mg Tab.Chew PO 12/17/24 10:35 324 mg ONCE ONE Administration Medical Decision Making Lab Data Lab results reviewed: Yes I reviewed the patient's lab results Labs: Lab Results 12/17/24 Range/Units 10:42 WBC 3.84 L (4.50-11.00) K/uL RBC 4.96 (4.30-5.90) m/uL Hgb 15.0 (13.5-17.5) gm/dL Hct 44.6 (37.0-53.0) % MCV 90 (80-100) fL MCH 30 (26-34) pg MCHC 34 (32-36) gm/dL RDW Coeff of Mar 11.9 (11.5-15.5) % Plt Count 235 (140-440) K/uL Neut % (Auto) 49.2 (42.0-72.0) % Lymph % (Auto) 38.3 (20-44) % Fillmore % (Auto) 8.3 (0.0-11.0) % Eos % (Auto) 3.4 (0.0-7.0) % Baso % (Auto) 0.5 (0.0-3.0) % Neut # (Auto) 1.90 (1.7-7.0) K/uL Lymph # (Auto) 1.50 (0.90-2.90) K/uL Fillmore # (Auto) 0.30 (0.00-0.90) K/UL Eos # (Auto) 0.10 (0.00-0.50) K/uL Baso # (Auto) 0.00 (0.00-0.30) K/uL Abs Immat Gran (auto) 0.00 (0.00-0.30) K/uL Imm/Tot Granulo (auto) 0.3 % Sodium 138 (135-149) mmol/L Potassium 4.6 (3.6-5.1) mmol/L Chloride 105 (96-114) mmol/L Carbon Dioxide 25 (20-32) mmol/L Anion Gap 8 (7-15) mEq/L BUN 13 (7-30) mg/dL Creatinine 0.8 (0.5-1.5) mg/dL Estimated Creat Clear 123.23 Estimated GFR 104 ml/min Glucose 117 H (60-115) mg/dL Calcium 8.9 (8.4-10.6) mg/dL C-Reactive Protein < 0.5 L (0.5-1.0) mg/dL POC Troponin I 0.00 L (0.01-0.04) ng/ml Imaging Data Chest x-ray: Attestation: I have reviewed the pertinent imaging results. Radiologist's impression: Patient: Yakov Simon MR#: [id number] : 1970 Acct:[id number] Loc: ED Service Date: 12/17/[address]: Ordering Physician: Beverly Dove M.D. Date of Service: 12/17/24 Procedure(s): XR chest 2V Accession Number(s): [id number] cc: Beverly Dove M.D.; Provider,Not a Local~ For Patients: As a result of the Cures Act, medical imaging exams and procedure reports are released immediately into your electronic medical record. You may view this report before your referring provider. If you have questions, please contact your health care provider. Indication: chest pain Technique: PA and lateral views of the chest. Comparison: 08/27/2024. Findings: Normal cardiomediastinal silhouette. No focal consolidation, pleural effusions, or visualized pneumothorax. Mild degenerative changes of the visualized spine. Impression: No acute cardiopulmonary disease. Dictated by Raji De Dios MD @ 12/17/2024 11:34:35 AM Discharge Plan Discharge Clinical Impression: Chest pain Patient Disposition: Home, Self-Care Condition: Improved Instructions: Chest Pain (DC) Additional Instructions: Test today are normal including chest x-ray and troponin. Follow-up with your doctor on Sunday as planned, I would recommend that you do a repeat stress test given that it has been a couple of years since her last 1. Return any time for acute severe symptoms. Prescriptions: No Action No Known Home Medications Follow Up/Referrals: Provider,Not a Local [Primary Care Provider] - Stand Alone Forms: [employer] Info Instructions
== END 2024-12-17 12:17 | disposition home or self-care (01) ==
PROVIDERS: Emergency Provider Emergency Medicine
DX: R07.9 Chest pain, unspecified (principal)
CPT/HCPCS: 36415; 71046; 80048; 84484; 85025; 86140; 93005; 99284; A9270